=== PATIENT | male | born 1945 | race Caucasian/White ===

== ENCOUNTER 2022-10-13 09:07 | Inpatient (IN) | payer MEDICARE, MEDICAID ==
[~2022-10-13] VITALS: Ht 175.3 cm; Wt 65.8 kg
[2022-10-13] VITALS (39 sets, daily range): BP systolic 77–121; BP diastolic 47–110
--- NOTE | 2022-10-13 09:10 | NUR ---
RECEIVED PT 80YRS MALE CAME BY DONTE FOR FROM SNF FOR LOW BP PT OPEN HIS EYED EYE CONTACT TO [facility]
--- NOTE | 2022-10-13 09:15 | NUR ---
PICC LINE ON RT UPPER ARM
[2022-10-13] MEDS ORDERED: IV NS 0.9% 1,000 ML BAG IV ONE (09:30)
--- NOTE | 2022-10-13 09:46 | NUR ---
BLOOD DROW BY LAB TACH AND BLOOD CULTURE DONE X2
[2022-10-13 10:00] LABS: BASOPHILS % (AUTO) 0.1 % (0.0-2.0); HEMATOCRIT 49 % (39-51); LYMPHOCYTES % (AUTO) 7.8 % (20.0-44.0); MEAN CORPUSCULAR HGB CONC 33 g/dl (31.0-36.0); MEAN CORPUSCULAR VOLUME 98 fL (80-96); MONOCYTES # (AUTO) 0.9 K/uL (0.1-1.30); NEUTROPHILS # (AUTO) 11.4 K/uL (1.8-8.9); NEUTROPHILS % (AUTO) 85.1 % (43.0-81.0); PLATELET COUNT (AUTO) 234 K/uL (150-450); WHITE BLOOD COUNT (AUTO) 13.4 K/uL (4.3-11.0)
[2022-10-13] MEDS ORDERED: FENTANYL PF 100MCG/2ML AMPUL ONE (10:26)
[2022-10-13] MEDS ORDERED: PIPERACILLIN /TAZOBACTAM 3.375 G in IV D5W 50 ML IV ONE (10:30)
[2022-10-13] MEDS ORDERED: VANCOMYCIN 1 GM in IV D5W 250 ML IV ONE (10:30)
[2022-10-13] MEDS ORDERED: FENTANYL PF 100MCG/2ML AMPUL IV ONE (10:30)
--- NOTE | 2022-10-13 10:32 | NUR ---
DR. AGUIRRE AT BEDSIDE. SYNCHRONIZED CARDIOVERSION. 200J.
[2022-10-13 10:40] LABS: SERUM AMMONIA 15 umol/L (11-32)
--- NOTE | 2022-10-13 10:42 | NUR ---
CALLED NURSING SUP REGARDING PT BED
[2022-10-13 10:44] LABS: ALANINE AMINOTRANSFERASE 87 U/L (12-78); ALBUMIN 2.7 g/dL (3.4-5.0); ALKALINE PHOSPHATASE 392 U/L (46-116); ASPARTATE AMINOTRANSFERASE 37 U/L (15-37); BILIRUBIN,DIRECT 3.1 mg/dL (0.0-0.2); CALCIUM, SERUM 9.7 mg/dL (8.5-10.1); CARBON DIOXIDE 21 mmol/L (21-32); CHLORIDE 114 mmol/L (98-107); CREATININE 4.2 mg/dL (0.6-1.3); GLUCOSE 109 mg/dL (74-106); SODIUM SERUM 147 mmol/L (136-145); TOTAL PROTEIN, SERUM 9.4 g/dL (6.4-8.2)
--- NOTE | 2022-10-13 10:48 | NUR ---
COVID SWAB SENT TO LAB
[2022-10-13 10:58] LABS: THYROID STIMULATING HORMONE 26.535 uIU/mL (0.358-3.74)
[2022-10-13 11:03] LABS: BILIRUBIN,TOTAL 4.2 mg/dL (0.2-1.0)
[2022-10-13 11:07] LABS: POTASSIUM 6.3 mmol/L (3.5-5.1)
[2022-10-13 11:08] LABS: UREA NITROGEN, BLOOD 86 mg/dL (7-18)
[2022-10-13 11:09] LABS: ACETAMINOPHEN 0 ug/ml (10-30); ALCOHOL, BLOOD < 3 mg/dL (0-0)
[2022-10-13] MEDS ORDERED: CALCIUM CHLORIDE 1,000 MG/10 ML DISP.SYRIN IV ONE (11:30)
[2022-10-13] MEDS ORDERED: SODIUM BICARBONATE SYR 50 MEQ/50 ML DISP.SYRIN IV ONE (11:30)
[2022-10-13] MEDS ORDERED: INSULIN REGULAR, HUMAN 100 UNIT/ML 10 ML VIAL IV ONE (11:30)
[2022-10-13] MEDS ORDERED: ALBUTEROL FS 2.5 MG/3 ML VIAL.NEB NEB ONE (11:30)
[2022-10-13] MEDS ORDERED: DEXTROSE 50%-WATER 50 ML DISP.SYRIN IV ONE (11:30)
[2022-10-13] MEDS ORDERED: INSULIN REGULAR, HUMAN 100 UNIT/ML 10 ML VIAL ONE (11:48)
[2022-10-13] MEDS ORDERED: SODIUM BICARBONATE SYR 50 MEQ/50 ML DISP.SYRIN ONE (11:48)
[2022-10-13] MEDS ORDERED: CALCIUM CHLORIDE 1,000 MG/10 ML DISP.SYRIN ONE (11:48)
[2022-10-13] MEDS ORDERED: DEXTROSE 50%-WATER 50 ML DISP.SYRIN ONE (11:48)
[2022-10-13] MEDS ORDERED: GABA-532 PO (12:26)
[2022-10-13] MEDS ORDERED: HYDR2TAB7 PO (12:26)
[2022-10-13] MEDS ORDERED: APIX2.5T PO (12:26)
[2022-10-13] MEDS ORDERED: BISA10SU11 RC (12:26)
[2022-10-13] MEDS ORDERED: AMIO200T5 PO (12:26)
[2022-10-13] MEDS ORDERED: ONDANSETRON HCL/PF 4 MG/2 ML VIAL ONE (12:26)
[2022-10-13] MEDS ORDERED: METO25TA20 PO (12:27)
[2022-10-13] MEDS ORDERED: PANT40TA49 PO (12:27)
[2022-10-13] MEDS ORDERED: TPN ADD IV (12:27)
[2022-10-13] MEDS ORDERED: ACET-868 PO (12:27)
[2022-10-13] MEDS ORDERED: LEVA0.6320 IH (12:27)
[2022-10-13] MEDS ORDERED: ONDA4TAB11 PO (12:27)
[2022-10-13] MEDS ORDERED: LEVO50TA8 PO (12:27)
[2022-10-13] MEDS ORDERED: NOREPINEPHRINE 8 MG in IV NS 0.9% 242 ML IV PRN ×2 (12:30→14:00)
[2022-10-13] MEDS ORDERED: ONDANSETRON HCL/PF - ER 4 MG/2 ML VIAL IV ONE (12:30)
[2022-10-13] MEDS ORDERED: ALBUTEROL FS 2.5 MG/3 ML VIAL.NEB ONE (12:35)
[2022-10-13] MEDS ORDERED: HYDROCODONE/APAP 5/325MG TABLET PO PRN (13:00)
[2022-10-13] MEDS ORDERED: HYDROCODONE/APAP 10/325MG TABLET PO PRN (13:00)
[2022-10-13] MEDS ORDERED: Z GUARD REMEDY 4 OZ OINT TP PRN (13:00)
--- NOTE | 2022-10-13 13:15 | NUR ---
ROOM 257
--- NOTE | 2022-10-13 13:38 | NUR ---
REPORT GIVEN TO VALENTINO ANDINO ICU ROOM 262 FOR LUCÍA.
--- NOTE | 2022-10-13 13:50 | NUR ---
RN NOTES RECEIVED PT FROM ICU, [place] , FOLLOWS COMMAND , ORIENTED x1-2, ON RA, O2 SAT WNL, ON TELE A.FIB HR IN 100'S, ON LEVO AT 0.05 MCG/KG/MIN, FOR BP SUPPORT, IV SITES CDI, DRAINAGE BAG APPLIED TO RIGHT UPPER ABD HOLE AREA , MODERATE AMOUNT OF YELLOWISH , CLOUDY DRAINAGE NOTED, SR UP x3, CALL LIGHT WITHIN EASY REACH, BED LOCKED AND IN LOWEST POSITION, CONTINUE TO MONITOR
[2022-10-13] MEDS ORDERED: TPN/PPN PER PHARMACY IV PRN (16:00)
[2022-10-13] MEDS ORDERED: DEXTROSE 50%-WATER 50 ML DISP.SYRIN IV PRN (16:00)
[2022-10-13] MEDS: NOREPINEPHRINE 8 MG in IV NS 0.9% 242 ML IV PRN (16:30)
[2022-10-13] MEDS: APIXABAN 2.5 MG TABLET PO SCH (16:31)
[2022-10-13] MEDS ORDERED: TPN #1 IV SCH ×4 (17:00)
[2022-10-13] MEDS: BLOOD SUGAR DIAGNOSTIC 1 EACH STRIP IN SCH ×2 (17:40→23:24)
[2022-10-13] MEDS: FOLIC ACID 1 MG TABLET PO SCH (17:40)
--- NOTE | 2022-10-13 18:00 | NUR ---
RN NOTES PICC LINE HAS TWO PORTS ,UNABLE TO FLUSH RED PORT , ORDER RECEIVED FOR NEW PICC LINE , PT ON LEVO AND TPN.
--- NOTE | 2022-10-13 18:16 | NUR ---
RN NOTES PT REMAINS ON LEVO AT .08 MCG/KG/MIN, ON TPN AT 40 , AWAITING FOR NEW PICC LINE , NO DISTESS NOTED, WILL ENDORSE TO ROLL FILLER NURSE FOR CONTINUITY OF ARE
[2022-10-13] MEDS: MEROPENEM 500 MG in IV NS 0.9% 50 ML IV SCH (19:40)
--- NOTE | 2022-10-13 19:40 | NUR ---
ALCOHOL LAW ENFORCEMENT AGENT OPENING NOTES RECEIVED PT IN BED, BOTH EYE CLOSED, EASILY AROUSABLE, ALERT/ORIENTED X1-2, ABLE TO COMMAND. ON ROOM AIR AND PT TOLERATED WELL. O2 SAT 97%. IV ACCESS ON MAURICIO PICC, UNABLE TO FLUSH RED PORT. WAITING FOR ANOTHER PICC. ANOTHER IV ACCESS ON RT HAND #22G INTACT AND PATENT. NO S/S OF INFILTRATIONS. LEVO RUNNING AT 0.08 MCG/KG/MIN. PT IS ON TPN AT 40CC/HR AND TOLERATED WELL. DRAINAGE BAG NOTED AT RIGHT UPPER ABD HOLE AREA , MODERATE AMOUNT OF YELLOWISH , CLOUDY DRAINAGE. FLYNN CATHETER IN PLACE. DRAINING BY GRAVITY, NOTED DARK/YELLOWISH URINE. ALL SAFETY MEASURES IN PLACE. SR UP x3, BED IN LOWEST POSITION AND LOCKED. PLACE CALL LIGHT WITHIN REACH, CONTINUE TO MONITOR
[2022-10-13 19:56] LABS: BILIRUBIN,URINE 1+ (NEGATIVE); COLOR,URINE YELLOW (YELLOW); LEUKOCYTE ESTERASE ,URINE NEGATIVE (NEGATIVE); NITRITE, URINE NEGATIVE (NEGATIVE); PH,URINE 5.5 (5.0-8.0); PROTEIN,URINE 1+ mg/dl (NEGATIVE); UGLUCOSE NEGATIVE (NEGATIVE)
[2022-10-13 20:28] LABS: BACTERIA,URINE Moderate /HPF (None Seen); SQUAMOUS EPITHELIAL CELL,UR Moderate /HPF (None Seen); WBC,URINE 0-2 /HPF (0-3)
[2022-10-13 20:29] LABS: COARSE GRANULAR CASTS,URINE Few /LPF (None Seen); URINE AMORPHOUS URATE Moderate /HPF (None Seen)
--- NOTE | 2022-10-13 21:39 | NUR ---
RN NOTES: UNABLE TO FIND THE FAMILY TO GET CONSENT FOR PICC. CALLED TWICE AND LEFT MESSAGE. NOTIFIED CLAUDY NINA. WILL SIGN EMERGENCY CONSENT FOR PICC.
--- NOTE | 2022-10-13 22:07 | NUR ---
RN NOTES: PICC LINE INSERTED BY PICC NURSE.
[2022-10-13] MEDS: INSULIN REGULAR, HUMAN 100 UNIT/ML 3 ML VIAL SQ PRN (23:26)
--- NOTE | 2022-10-13 23:41 | NUR ---
RN NOTES: PT'S BLOOD SUGAR 137. 2 UNITS OF REGULAR INSULIN GIVEN. NO S/S OF HYPER/HYPOGLYCEMIA. WILL CONTINUE TO MONITOR
[2022-10-14] VITALS (97 sets, daily range): BP systolic 74–121; BP diastolic 35–86
[2022-10-14 04:53] LABS: BASOPHILS % (AUTO) 0.2 % (0.0-2.0); EOSINOPHILS % (AUTO) 0.3 % (0.0-6.0); HEMATOCRIT 38 % (39-51); HEMOGLOBIN 12.3 g/dL (13.5-17.5); LYMPHOCYTES # (AUTO) 0.9 K/uL (0.8-4.8); LYMPHOCYTES % (AUTO) 9.4 % (20.0-44.0); MEAN CORPUSCULAR HGB CONC 32 g/dl (31.0-36.0); MEAN CORPUSCULAR VOLUME 99 fL (80-96); MONOCYTES # (AUTO) 0.7 K/uL (0.1-1.30); MONOCYTES % (AUTO) 7.9 % (2.0-12.0); NEUTROPHILS # (AUTO) 7.5 K/uL (1.8-8.9); NEUTROPHILS % (AUTO) 82.2 % (43.0-81.0); PLATELET COUNT (AUTO) 168 K/uL (150-450); RED BLOOD CELL COUNT(AUTO) 3.85 MIL/uL (4.5-6.0); WHITE BLOOD COUNT (AUTO) 9.1 K/uL (4.3-11.0)
[2022-10-14] MEDS: INSULIN REGULAR, HUMAN 100 UNIT/ML 3 ML VIAL SQ PRN (05:35)
[2022-10-14] MEDS: BLOOD SUGAR DIAGNOSTIC 1 EACH STRIP IN SCH ×3 (05:35→17:18)
[2022-10-14] MEDS: MEROPENEM 500 MG in IV NS 0.9% 50 ML IV SCH ×2 (05:36→18:25)
--- NOTE | 2022-10-14 05:37 | NUR ---
RN NOTES: PT'S BLOOD SUGAR 113. NO COVERAGE NEEDED. NO S/S OF HYPER/HYPOGLYCEMIA. WILL CONTINUE TO MONITOR
[2022-10-14 05:38] LABS: D-DIMER 1.72 mg/L(FEU (0.17-0.50)
[2022-10-14 06:00] LABS: CARBON DIOXIDE 20 mmol/L (21-32); CHLORIDE 117 mmol/L (98-107); GLUCOSE 124 mg/dL (74-106); POTASSIUM 4.4 mmol/L (3.5-5.1); SODIUM SERUM 150 mmol/L (136-145)
[2022-10-14 06:01] LABS: CREATININE 4.3 mg/dL (0.6-1.3); MAGNESIUM 2.1 mg/dL (1.8-2.4); PHOSPHORUS 2.5 mg/dL (2.5-4.9); UREA NITROGEN, BLOOD 86 mg/dL (7-18)
--- NOTE | 2022-10-14 06:33 | NUR ---
PLEAT TAPER CLOSING NOTES PT IN BED, SLEEPING, EASILY AROUSABLE, ALERT/ORIENTED X 2-3 AND VERBALLY RESPONSIVE. ABLE TO COMMAND. ON ROOM AIR AND PT TOLERATED WELL. O2 SAT 96%. NEW IV ACCESS ON MAURICIO PICC AND RT HAND #22G INTACT AND PATENT. NO S/S OF INFILTRATIONS. LEVO RUNNING AT 0.08 MCG/KG/MIN. PT IS ON TPN AT 40CC/HR AND TOLERATED WELL. DRAINAGE BAG NOTED AT RIGHT UPPER ABD HOLE AREA , NOTED 100C OF YELLOWISH/BILE COLOR DRAINAGE. FLYNN CATHETER IN PLACE. DRAINING BY GRAVITY, NOTED DARK/YELLOWISH URINE. ALL DUE MEDS GIVEN ORDERED. ALL SAFETY MEASURES IN PLACE. SR UP x3, BED IN LOWEST POSITION AND LOCKED. PLACE CALL LIGHT WITHIN REACH, WILL ENDORSE TO MORNING SHIFT NURSE.
[2022-10-14 07:00] LABS: CHOLESTEROL 48 mg/dL (<200); HDL CHOLESTEROL 13 mg/dL (40-60); LDL 25 mg/dL (0-99); TRIGLYCERIDES 124 mg/dL (30-150)
--- NOTE | 2022-10-14 07:10 | NUR ---
RN Note Patient's GCS E4V4M6, bilateral pupils 3mm PEARRL. Cardiac montior showed AF HR 100/min. MAP>65mmHg with levophed running at 0.08mcg/kg/min via right UA PICC. SpO2 >95% RA, RR ~25/min. TPN running at 40mL/hr via right PICC. Will continue care and monitoring.
[2022-10-14] MEDS ORDERED: LEVOTHYROXINE SODIUM 50 MCG TABLET PO SCH (07:30)
[2022-10-14] MEDS ORDERED: PANTOPRAZOLE 40 MG TABLET.DR PO SCH (07:30)
--- NOTE | 2022-10-14 08:35 | NUR ---
WOUND CARE CONSULT: PT HAS BEEN SLEEPING SOUNDLY. ADMISSION PHOTO INDICATES ABDMINAL OPENING WHICH HAS DRAINAGE OSTOMY POUCH IN PLACE. DISCUSSED SKIN PROTECTION WITH NURSING STAFF. IN AGREEMENT WITH PLAN OF CARE.
[2022-10-14] MEDS: FOLIC ACID 1 MG TABLET PO SCH (09:09)
[2022-10-14] MEDS: GABAPENTIN 100 MG CAPSULE PO SCH (09:09)
[2022-10-14] MEDS: APIXABAN 2.5 MG TABLET PO SCH ×2 (09:10→16:42)
--- NOTE | 2022-10-14 09:30 | NUR ---
RN note Adminsitered oral medication for patientm, no choking or coughing noted. However after 5 minutes of administration, patient vomited as he complained dysphagia. Will continue observation.
[2022-10-14] MEDS: PANTOPRAZOLE 40 MG/PACK PACK GT SCH (10:00)
[2022-10-14 10:07] LABS: *ANA ANTI-CENTROMERE B AB <0.2 AI (0.0-0.9); *ANA ANTI-DNA(DS) AB, QN 3 IU/mL (0-9); *ANA ANTI-JO-1 <0.2 AI (0.0-0.9); *ANA ANTICHROMATIN ANTIBODY <0.2 AI (0.0-0.9); *ANA RNP ANTIBODIES 2.4 AI (0.0-0.9); *ANA SJOGREN'S ANTI-SS-A <0.2 AI (0.0-0.9); *ANA SJOGREN'S ANTI-SS-B <0.2 AI (0.0-0.9); *ANAANTI-SCLERODERMA-70 AB <0.2 AI (0.0-0.9); *ANASMITH AB <0.2 AI (0.0-0.9)
[2022-10-14] MEDS: MIDODRINE HCL (5MG) 5 MG TABLET PO SCH ×3 (11:41→19:21)
--- NOTE | 2022-10-14 13:00 | NUR ---
RN note Decided to space out the midodrine as it was administered at 11:00. Informed MD Grace about the arrangement.
[2022-10-14 13:08] LABS: AFP, TUMOR MARKER 3.2 ng/mL (0.0-8.4); CARBOHYDRATE AG 19-9 <2 U/mL (0-35)
--- NOTE | 2022-10-14 16:03 | NUR ---
RN note Patient complained hiccups. Informed MD Grace, who prescribed IV metoclopramide 10mg Q8H prn, given one dose.
[2022-10-14] MEDS: METOCLOPRAMIDE HCL 10 MG/2 ML VIAL IV PRN (16:42)
[2022-10-14] MEDS: NOREPINEPHRINE 8 MG in IV NS 0.9% 242 ML IV PRN (16:53)
[2022-10-14] MEDS ORDERED: TPN #2 IV SCH ×4 (16:59)
--- NOTE | 2022-10-14 20:30 | NUR ---
ICU/RN: PT CONVERTED TO RAPID AFIB. 12 LEAD EKG ORDERED. DINORA LOCO ACNP MADE AWARE.
--- NOTE | 2022-10-14 21:10 | NUR ---
ICU/RN: DINORA LOCO ACNP AT BEDSIDE TO EVALUATE PT.
[2022-10-14] MEDS ORDERED: AMIODARONE 150 MG in IV D5W 100 ML IV ONE (21:30)
[2022-10-14] MEDS ORDERED: AMIODARONE 150 MG/3 ML VIAL IV ONE ×2 (21:30→21:38)
--- NOTE | 2022-10-14 21:30 | NUR ---
ICU/RN: NEW ORDERS FOR AMIODARONE GTT WITH BOLUS.
[2022-10-14] MEDS: AMIODARONE 450 MG in IV D5W 241 ML IV PRN (21:45)
--- NOTE | 2022-10-14 21:45 | NUR ---
ICU/RN: AMIO BOLUS COMPLETE AND GTT STARTED AT 1MG/MIN
[2022-10-15] VITALS (97 sets, daily range): BP systolic 73–131; BP diastolic 24–88
[2022-10-15] MEDS: BLOOD SUGAR DIAGNOSTIC 1 EACH STRIP IN SCH ×5 (00:41→23:40)
--- NOTE | 2022-10-15 03:46 | NUR ---
ICU/RN: AMIO GTT TITRATED TO 0.5MG/MIN PER PROTOCOL.
[2022-10-15 05:24] LABS: BASOPHILS % (AUTO) 0.1 % (0.0-2.0); EOSINOPHILS % (AUTO) 2.3 % (0.0-6.0); HEMATOCRIT 38 % (39-51); HEMOGLOBIN 12.4 g/dL (13.5-17.5); LYMPHOCYTES # (AUTO) 0.9 K/uL (0.8-4.8); LYMPHOCYTES % (AUTO) 13.7 % (20.0-44.0); MEAN CORPUSCULAR HGB CONC 33 g/dl (31.0-36.0); MEAN CORPUSCULAR VOLUME 98 fL (80-96); MONOCYTES # (AUTO) 0.6 K/uL (0.1-1.30); MONOCYTES % (AUTO) 9.5 % (2.0-12.0); NEUTROPHILS # (AUTO) 4.9 K/uL (1.8-8.9); NEUTROPHILS % (AUTO) 74.4 % (43.0-81.0); PLATELET COUNT (AUTO) 160 K/uL (150-450); RED BLOOD CELL COUNT(AUTO) 3.85 MIL/uL (4.5-6.0); WHITE BLOOD COUNT (AUTO) 6.6 K/uL (4.3-11.0)
[2022-10-15 05:40] LABS: CALCIUM, SERUM 8.7 mg/dL (8.5-10.1); CARBON DIOXIDE 21 mmol/L (21-32); CHLORIDE 117 mmol/L (98-107); CREATININE 3.7 mg/dL (0.6-1.3); GLUCOSE 131 mg/dL (74-106); MAGNESIUM 2.1 mg/dL (1.8-2.4); PHOSPHORUS 2.3 mg/dL (2.5-4.9); POTASSIUM 4.1 mmol/L (3.5-5.1); SODIUM SERUM 146 mmol/L (136-145)
[2022-10-15 05:41] LABS: D-DIMER 2.86 mg/L(FEU (0.17-0.50)
[2022-10-15 05:45] LABS: UREA NITROGEN, BLOOD 84 mg/dL (7-18)
[2022-10-15] MEDS: MEROPENEM 500 MG in IV NS 0.9% 50 ML IV SCH ×2 (05:46→18:31)
--- NOTE | 2022-10-15 07:30 | NUR ---
RN Note Patient's GCS E4V4M6, bilateral bilateral pupils 3mm PEARRL. Cardiac montior showed AF HR 110/min. MAP>65mmHg with levophed running at 0.1mcg/kg/min via right UA PICC. SpO2 >95% RA, RR ~25/min. TPN running at 40mL/hr via right PICC. Will continue care and monitoring.
[2022-10-15] MEDS: AMIODARONE 450 MG in IV D5W 241 ML IV PRN ×2 (07:54→22:16)
--- NOTE | 2022-10-15 08:06 | NUR ---
WOUND CARE CONSULT: PT PRESENTS WITH RT UPPER ABDOMEN DRAINING WOUND WITH GREENISH DRAINAGE IN OSTOMY POUCH, PRESENT ON ADMISSION. DEFER TO PMD FOR POSSIBLE GENERAL SURGERY CONSULT. CONCUR WITH POUCH USE FOR SKIN PROTECTION. DISCUSSED SKIN PROTECTION WITH NURSING STAFF. MD IN AGREEMENT WITH PLAN OF CARE.
[2022-10-15] MEDS: GABAPENTIN 100 MG CAPSULE PO SCH (08:47)
[2022-10-15] MEDS: PANTOPRAZOLE 40 MG/PACK PACK GT SCH (08:47)
[2022-10-15] MEDS: FOLIC ACID 1 MG TABLET PO SCH (08:47)
[2022-10-15] MEDS: MIDODRINE HCL (5MG) 5 MG TABLET PO SCH ×3 (08:47→18:29)
[2022-10-15] MEDS: APIXABAN 2.5 MG TABLET PO SCH ×2 (08:48→18:29)
[2022-10-15] MEDS ORDERED: VANCOMYCIN 500 MG in IV D5W 100ml IV SCH (11:00)
[2022-10-15] MEDS ORDERED: Sodium Phosphate 15 MMOL in IV NS 0.9% 245 ML IV SCH (14:00)
--- NOTE | 2022-10-15 14:13 | NUR ---
RN note MRSA swab of nostril came back positive, ordered bactroban ointment.
[2022-10-15] MEDS ORDERED: TPN #3 IV SCH ×4 (16:59)
--- NOTE | 2022-10-15 18:00 | NUR ---
RN note Informed pharmacist about the absence of TPN bag, pharmacist Scarlett said that they would send the bag up.
--- NOTE | 2022-10-15 19:15 | NUR ---
ICU/PEN RIDER RECIEVED REPORT FROM DAY. SEE FLOWSHEET FOR ASSESSMENT. AND IV SPREAD SHEET FOR IV'S AND TITRATION. PT WAS TURNED AND REPOSITIONED FOR COMFORT AND CARE.
--- NOTE | 2022-10-15 19:15 | NUR ---
RN note Informed DR. Griffin about AF and the amiodarone drip. Inquired about the continuation of the amiodarone drip. He said to continue the infusion at 0.5mcg/kg/min.
[2022-10-15] MEDS: MUPIROCIN OINT 2% 22 GM TUBE NS SCH (21:57)
[2022-10-15] MEDS: MORPHINE SULFATE INJ 2 MG/ML DISP.SYRIN IV PRN (22:23)
--- NOTE | 2022-10-15 22:25 | NUR ---
ICU/BIN CLEANER PT C/O OF PAIN TO THE RIGHT SIDE, NOTIFED CHARGE NURSE ABOUT THIS WHI THEN GAVE MORPHINE 2 MG IVP FOR PAIN RATED 8/10. WILL CONTINUE TO MONITOR THIS PT AND HIS PAIN.
[2022-10-16] VITALS (80 sets, daily range): BP systolic 80–127; BP diastolic 39–80
[2022-10-16] MEDS: ONDANSETRON HCL/PF 4 MG/2 ML VIAL IVP PRN ×2 (02:59→18:11)
--- NOTE | 2022-10-16 03:11 | NUR ---
ICU/AUDITOR TAX ZOFRAN PRN WAS GIVEN FOR PT WHO APPEARS TO HAVE SOME DRY HEAVING. CHARGE NURSE MADE AWARE AND GAVE PRN. WILL CONTINUE TO MONITOR THIS PT. NO ACUTE DISTRESS SEEN AT THIS TIME.
[2022-10-16 05:02] LABS: BASOPHILS % (AUTO) 0.1 % (0.0-2.0); EOSINOPHILS % (AUTO) 2.8 % (0.0-6.0); HEMATOCRIT 37 % (39-51); LYMPHOCYTES # (AUTO) 0.9 K/uL (0.8-4.8); LYMPHOCYTES % (AUTO) 17.3 % (20.0-44.0); MEAN CORPUSCULAR HGB CONC 33 g/dl (31.0-36.0); MEAN CORPUSCULAR VOLUME 98 fL (80-96); MONOCYTES # (AUTO) 0.6 K/uL (0.1-1.30); MONOCYTES % (AUTO) 10.7 % (2.0-12.0); NEUTROPHILS # (AUTO) 3.6 K/uL (1.8-8.9); NEUTROPHILS % (AUTO) 69.1 % (43.0-81.0); PLATELET COUNT (AUTO) 168 K/uL (150-450); RED BLOOD CELL COUNT(AUTO) 3.78 MIL/uL (4.5-6.0); WHITE BLOOD COUNT (AUTO) 5.2 K/uL (4.3-11.0)
[2022-10-16 05:28] LABS: CALCIUM, SERUM 8.4 mg/dL (8.5-10.1); CARBON DIOXIDE 19 mmol/L (21-32); CHLORIDE 116 mmol/L (98-107); GLUCOSE 112 mg/dL (74-106); MAGNESIUM 2.2 mg/dL (1.8-2.4); PHOSPHORUS 3.4 mg/dL (2.5-4.9); SODIUM SERUM 146 mmol/L (136-145)
[2022-10-16 05:30] LABS: D-DIMER 5.69 mg/L(FEU (0.17-0.50)
[2022-10-16 05:31] LABS: UREA NITROGEN, BLOOD 80 mg/dL (7-18)
[2022-10-16] MEDS: BLOOD SUGAR DIAGNOSTIC 1 EACH STRIP IN SCH ×3 (05:49→17:57)
[2022-10-16] MEDS: MEROPENEM 500 MG in IV NS 0.9% 50 ML IV SCH ×2 (05:52→18:11)
--- NOTE | 2022-10-16 07:36 | NUR ---
MANAGER CRITICAL CARE note Patient's GCS E3V4M6 as patient was asleep. ent surgeon showed AF with HR 108/min with amiodarone drip running at 0.5mg/min to control HR. BP 97/58mmHg with levophed running at 0.02mmHg via right UA PICC. SPO2 97% RA, RR 24/min. Right UA PICC site is dry and intact, with amiodarone, levophed and TPN(40mL/hr) running. Patient appears jaundice, which was present at admission. Irene is in-situ, draining dark yellow-orange urine due to his biliary and liver condition. Keep observation.
[2022-10-16] MEDS: MIDODRINE HCL (5MG) 5 MG TABLET PO SCH ×3 (09:01→17:56)
[2022-10-16] MEDS: PANTOPRAZOLE 40 MG/PACK PACK GT SCH (09:01)
[2022-10-16] MEDS: FOLIC ACID 1 MG TABLET PO SCH (09:01)
[2022-10-16] MEDS: MUPIROCIN OINT 2% 22 GM TUBE NS SCH ×2 (09:02→21:07)
[2022-10-16] MEDS: APIXABAN 2.5 MG TABLET PO SCH ×2 (09:02→17:57)
[2022-10-16] MEDS: GABAPENTIN 100 MG CAPSULE PO SCH (09:02)
[2022-10-16] MEDS ORDERED: VANCOMYCIN 1 GM in IV D5W 250ml IV SCH (11:00)
[2022-10-16] MEDS ORDERED: VANCOMYCIN 500 MG in IV D5W 100ml IV SCH (11:00)
[2022-10-16] MEDS: METOCLOPRAMIDE HCL 10 MG/2 ML VIAL IV PRN (11:54)
--- NOTE | 2022-10-16 12:27 | NUR ---
LAMP SHADES SUPERVISOR Note Reported the drainage pouch over the right abdomen of patient. Dr. Grace ordered an CT abdomen before making a consultation to surgeon.
[2022-10-16] MEDS ORDERED: TPN #4 IV SCH ×4 (12:59)
--- NOTE | 2022-10-16 13:50 | NUR ---
RN note Received a call from MD Dr. Grace that patient can be discharged after his contact with neurosurgeon Dr. Munoz.
[2022-10-16] MEDS: AMIODARONE 450 MG in IV D5W 241 ML IV PRN (14:37)
--- NOTE | 2022-10-16 15:51 | NUR ---
ENVIRONMENTAL ISSUES INSTRUCTOR note Discharge documents are prepared and handed to patient and his mother. Education is given upon the exercises and activities to avoid for the time being. Advised patient not to engage in weight-lifting / bearing exercise that will increase the intra-cranial pressure. He showed understanding. Also reminded patient to arrange for an outpatient neurosurgery consultation and provided the document on excuse from work. Vital signs and neurological status have been normal all along. Patient passed urine without difficulty. Bilateral AC IV cannulas are removed. Patient left ICU with mother's accompany. Addendum: 10/17/22 at 1834 by CHANDLER CHRISTIANSON RN Note was entered for the wrong patient.
--- NOTE | 2022-10-16 19:45 | NUR ---
ICU/SEISMOMETER OPERATOR DR WOODWARD CARDIOLOGY MADE A NOTE, "Continue amiodarone drip at this point as the only way to control his heart rate" MADE CHARGE NURSE AWARE
[2022-10-16] MEDS: MORPHINE SULFATE INJ 2 MG/ML DISP.SYRIN IV PRN (19:49)
--- NOTE | 2022-10-16 20:15 | NUR ---
ICU/TON CONTAINER SHIPPER MORPHINE 2MG GIVEN IVP BY SECURITY SYSTEMS INTEGRATOR NURSE FOR PAIN 05/11. PAIN TO THE STOMACH AREA. WILL MONITOR THIS PT.
[2022-10-17] VITALS (75 sets, daily range): BP systolic 72–126; BP diastolic 42–74
[2022-10-17] MEDS: BLOOD SUGAR DIAGNOSTIC 1 EACH STRIP IN SCH ×5 (00:17→23:13)
[2022-10-17] MEDS: ONDANSETRON HCL/PF 4 MG/2 ML VIAL IVP PRN (00:52)
--- NOTE | 2022-10-17 00:56 | NUR ---
ICU/TICKET CHOPPER ASSEMBLER ZOFRAN PRN WAS GIVEN FOR PT WHO APPEARS TO HAVE SOME DRY HEAVING. CHARGE NURSE MADE AWARE AND GAVE PRN. WILL CONTINUE TO MONITOR THIS PT. NO ACUTE DISTRESS SEEN AT THIS TIME.
[2022-10-17] MEDS: MORPHINE SULFATE INJ 2 MG/ML DISP.SYRIN IV PRN (02:01)
--- NOTE | 2022-10-17 02:04 | NUR ---
ICU/TAPING FOREMAN MORPHINE 2MG GIVEN IVP BY DYE CAN OPERATOR NURSE FOR PAIN 05/11. PAIN TO THE STOMACH AREA. WILL MONITOR THIS PT.
[2022-10-17] MEDS ORDERED: AMIODARONE 150 MG/3 ML VIAL IV ONE (05:02)
[2022-10-17 05:03] LABS: ALANINE AMINOTRANSFERASE 95 U/L (12-78); ALKALINE PHOSPHATASE 355 U/L (46-116); ASPARTATE AMINOTRANSFERASE 70 U/L (15-37); BILIRUBIN,DIRECT 4.8 mg/dL (0.0-0.2); BILIRUBIN,TOTAL 5.5 mg/dL (0.2-1.0); CARBON DIOXIDE 19 mmol/L (21-32); CHLORIDE 116 mmol/L (98-107); CREATININE 2.9 mg/dL (0.6-1.3); GLUCOSE 112 mg/dL (74-106); MAGNESIUM 1.9 mg/dL (1.8-2.4); PHOSPHORUS 2.5 mg/dL (2.5-4.9); POTASSIUM 3.7 mmol/L (3.5-5.1); SODIUM SERUM 144 mmol/L (136-145); TOTAL PROTEIN, SERUM 6.2 g/dL (6.4-8.2); UREA NITROGEN, BLOOD 78 mg/dL (7-18)
[2022-10-17] MEDS: AMIODARONE 450 MG in IV D5W 241 ML IV PRN ×2 (05:07→17:32)
[2022-10-17 05:23] LABS: ALBUMIN 1.4 g/dL (3.4-5.0)
[2022-10-17 05:26] LABS: BASOPHILS % (AUTO) 0.2 % (0.0-2.0); EOSINOPHILS % (AUTO) 6.1 % (0.0-6.0); HEMATOCRIT 35 % (39-51); HEMOGLOBIN 11.4 g/dL (13.5-17.5); LYMPHOCYTES # (AUTO) 1.1 K/uL (0.8-4.8); LYMPHOCYTES % (AUTO) 22.8 % (20.0-44.0); MEAN CORPUSCULAR HGB CONC 32 g/dl (31.0-36.0); MEAN CORPUSCULAR VOLUME 98 fL (80-96); MONOCYTES # (AUTO) 0.6 K/uL (0.1-1.30); MONOCYTES % (AUTO) 12.6 % (2.0-12.0); NEUTROPHILS # (AUTO) 2.8 K/uL (1.8-8.9); NEUTROPHILS % (AUTO) 58.3 % (43.0-81.0); PLATELET COUNT (AUTO) 160 K/uL (150-450); RED BLOOD CELL COUNT(AUTO) 3.59 MIL/uL (4.5-6.0); WHITE BLOOD COUNT (AUTO) 4.8 K/uL (4.3-11.0)
[2022-10-17] MEDS: MEROPENEM 500 MG in IV NS 0.9% 50 ML IV SCH (05:31)
[2022-10-17] MEDS ORDERED: TPN BAG #5 IV SCH ×2 (05:45)
[2022-10-17 06:07] LABS: D-DIMER 6.69 mg/L(FEU (0.17-0.50)
--- NOTE | 2022-10-17 06:28 | NUR ---
ICU/PLASTIC BLOCK BOILER RELINER FIBRINOGEN IS 786 THIS IS TRENDING DOWN IN THE RIGHT DIRECTION
--- NOTE | 2022-10-17 07:27 | NUR ---
RN NOTES RECEIVED PT ON BED, ALERT/ CONFUSED , ON 2L O2 N/C , O2 SAT WNL, ON TELE A.FIB HR IN LOW 100'S, PT IS ON AMIODARONE a 0.5 MG/MIN FLYNN DRAINING TO GRAVITY, BILIARY DRAINAGE BAG INTACT, IV SITE CDI, TPN AT 85CC /HR RUNNING , SR UP x3, CALL LIGHT WITHIN EASY REACH, BED LOCKED AND IN LOWEST POSITION, CONTINUE TO MONITOR .
[2022-10-17] MEDS: PANTOPRAZOLE 40 MG/PACK PACK GT SCH (08:08)
[2022-10-17] MEDS: MIDODRINE HCL (5MG) 5 MG TABLET PO SCH ×3 (08:08→16:49)
[2022-10-17] MEDS: FOLIC ACID 1 MG TABLET PO SCH (08:08)
[2022-10-17] MEDS: GABAPENTIN 100 MG CAPSULE PO SCH (08:08)
[2022-10-17] MEDS: MUPIROCIN OINT 2% 22 GM TUBE NS SCH ×2 (08:10→20:50)
[2022-10-17] MEDS: APIXABAN 2.5 MG TABLET PO SCH ×2 (08:10→16:49)
--- NOTE | 2022-10-17 12:00 | NUR ---
RN NOTES PT RESTING , CONFUSED , NO DISTRESS NOTED
--- NOTE | 2022-10-17 13:00 | NUR ---
RN NOTES ORDER FOR CT OF ABD SHOULD REMAINS ROUTINE ORDER FOR NOW PER DR DAVEY .
[2022-10-17] MEDS ORDERED: TPN #6 IV SCH ×4 (17:30)
--- NOTE | 2022-10-17 18:32 | NUR ---
RN NOTES NO SIGNFICANT CHANGES NOTED ON THIS SHIFT, PT ON TPN AT 60CC/HR , AMIO AT 0.5 MG/MIN RUNNING , WILL ENDORSE TO WOOD GRINDER NURSE FOR CONTINUITY OF CARE
--- NOTE | 2022-10-17 19:45 | NUR ---
ICU/FLOUR BLENDER RECIEVED REPORT FROM DAY. SEE FLOWSHEET FOR ASSESSMENT. AND IV SPREAD SHEET FOR IV'S AND TITRATION. PT WAS TURNED AND REPOSITIONED FOR COMFORT AND CARE.
[2022-10-18] VITALS (21 sets, daily range): BP systolic 90–109; BP diastolic 53–69
[2022-10-18 04:40] LABS: BASOPHILS % (AUTO) 0.1 % (0.0-2.0); EOSINOPHILS % (AUTO) 4.3 % (0.0-6.0); HEMATOCRIT 35 % (39-51); HEMOGLOBIN 11.1 g/dL (13.5-17.5); LYMPHOCYTES # (AUTO) 1.1 K/uL (0.8-4.8); LYMPHOCYTES % (AUTO) 20.5 % (20.0-44.0); MEAN CORPUSCULAR HGB CONC 32 g/dl (31.0-36.0); MEAN CORPUSCULAR VOLUME 99 fL (80-96); MONOCYTES # (AUTO) 0.6 K/uL (0.1-1.30); MONOCYTES % (AUTO) 10.7 % (2.0-12.0); NEUTROPHILS # (AUTO) 3.4 K/uL (1.8-8.9); NEUTROPHILS % (AUTO) 64.4 % (43.0-81.0); PLATELET COUNT (AUTO) 173 K/uL (150-450); RED BLOOD CELL COUNT(AUTO) 3.52 MIL/uL (4.5-6.0); WHITE BLOOD COUNT (AUTO) 5.3 K/uL (4.3-11.0)
[2022-10-18 04:49] LABS: CALCIUM, SERUM 7.9 mg/dL (8.5-10.1); CARBON DIOXIDE 18 mmol/L (21-32); CHLORIDE 113 mmol/L (98-107); CREATININE 2.6 mg/dL (0.6-1.3); GLUCOSE 118 mg/dL (74-106); MAGNESIUM 1.7 mg/dL (1.8-2.4); PHOSPHORUS 2.4 mg/dL (2.5-4.9); POTASSIUM 3.6 mmol/L (3.5-5.1); SODIUM SERUM 140 mmol/L (136-145); UREA NITROGEN, BLOOD 72 mg/dL (7-18)
[2022-10-18] MEDS ORDERED: TPN BAG #7 IV SCH ×2 (05:30)
[2022-10-18] MEDS ORDERED: TPN BAG #8 IV SCH ×2 (05:30)
[2022-10-18] MEDS: BLOOD SUGAR DIAGNOSTIC 1 EACH STRIP IN SCH ×3 (05:53→18:09)
[2022-10-18] MEDS ORDERED: IV NS 0.9% 250 ML IV PRN (06:30)
--- NOTE | 2022-10-18 07:05 | NUR ---
RN OPENING NOTES RECEIVED REPORT FROM [facility] ANIYAH CHÁVEZ. PATIENT ON 2 LITERS SUPPLEMENTAL OXYGEN VIA NASAL CANULA. PATIENT ALSEEP BUT EASILY AROUSABLE. A-FIB ON THE MONITOR ON AMIODARONE. PER DR WOODWARD 'WILNER INFUSION @ 0.5 MCG' IV ACCESS ON RIGHT UPPER ARM PICC LINE AND RIGHT HAND 22 GAUGE HEP LOCKED. RIGHT ABDOMINAL DRAIN NOTED, PENDING CT SCAN OF AREA AT THIS TIME. SAFETY MEASURES IMPLEMENTED. WILL CONTINUE PLAN OF CARE AND ANTICIPATE NEEDS.
[2022-10-18 07:40] LABS: PREALBUMIN 10.2 MG/DL (18.0-35.7)
[2022-10-18] MEDS: PANTOPRAZOLE 40 MG/PACK PACK GT SCH (08:06)
[2022-10-18] MEDS: Magnesium 1GM/D5W 100ML PREMIX 100 ML IV SCH ×2 (08:06→09:08)
[2022-10-18] MEDS: GABAPENTIN 100 MG CAPSULE PO SCH (08:07)
[2022-10-18] MEDS: APIXABAN 2.5 MG TABLET PO SCH ×2 (08:07→17:00)
[2022-10-18] MEDS: FOLIC ACID 1 MG TABLET PO SCH (08:07)
[2022-10-18] MEDS: MIDODRINE HCL (5MG) 5 MG TABLET PO SCH ×4 (08:08→17:00)
[2022-10-18] MEDS: MUPIROCIN OINT 2% 22 GM TUBE NS SCH ×2 (08:08→20:34)
[2022-10-18 08:41] LABS: ALBUMIN 1.3 g/dL (3.4-5.0)
[2022-10-18] MEDS: AMIODARONE 450 MG in IV D5W 241 ML IV PRN ×2 (09:10→22:33)
[2022-10-18] MEDS: MORPHINE SULFATE INJ 2 MG/ML DISP.SYRIN IV PRN ×3 (09:39→22:35)
[2022-10-18] MEDS ORDERED: Sodium Phosphate 15 MMOL in IV NS 0.9% 245 ML IV SCH (10:00)
[2022-10-18] MEDS ORDERED: POTASSIUM PHOSPHATE MM 7.5 MMOL in IV NS 0.9% 100 ML IV SCH (10:00)
--- NOTE | 2022-10-18 12:25 | NUR ---
PATIENT TRANSFERRED TO ROOM 105 IN [place]. CARE ENDORSED TO CHARGE NURSE SOON.
--- NOTE | 2022-10-18 12:50 | NUR ---
PAVER OPERATOR NOTES PATIENT RECEIVED FROM ICU A/O X 2-3.
--- NOTE | 2022-10-18 13:00 | NUR ---
SUPERINTENDENT LOGGING NOTE MIDODRINE HELD PER MD ORDER. PT NPO.
[2022-10-18] MEDS: INSULIN REGULAR, HUMAN 100 UNIT/ML 3 ML VIAL SQ PRN ×2 (14:00→18:09)
--- NOTE | 2022-10-18 15:53 | NUR ---
STRICT NPO PT TO REMAIN ON STRICT NPO STATUS UNTIL SWALLOW EVALUATION 10/19.
[2022-10-18] MEDS ORDERED: TPN IV SCH ×4 (17:30)
--- NOTE | 2022-10-18 19:07 | NUR ---
NEPHROLOGIST CLOSING NOTES PT IN BED RESTING. ON 4L NC. BREATHING EVEN AND UNLABORED WITH NO SOB OR SIGNS OF RESPIRATORY DISTRESS. A-FIB 98 WITH BUNDLE BRANCH BLOCK ON MONITOR. IV ACCESS ON RIGHT UPPER ARM PICC LINE WITH AMIODARONE INFUSING @ 16.667 ML/HR AND TPN @ 85 ML/HR. RIGHT HAND 22 GAUGE HEP LOCKED. RIGHT ABDOMINAL DRAIN NOTED. COMPLAINTS OF ABDOMINAL PAIN ADDRESSED. ALL SAFETY PRECAUTIONS IN PLACE. WILL ENDORSE TO ONCOMING SHIFT FOR LUCÍA.
--- NOTE | 2022-10-18 19:30 | NUR ---
[place] RN OPENING NOTES RECEIVED PT IN BED RESTING. ON 4L NC. BREATHING EVEN AND UNLABORED WITH NO SOB OR SIGNS OF RESPIRATORY DISTRESS. A-FIB 92 WITH BUNDLE BRANCH BLOCK ON MONITOR. IV ACCESS ON RIGHT UPPER ARM PICC LINE WITH AMIODARONE INFUSING @ 16.66 ML/HR AND TPN @ 85 ML/HR. RIGHT HAND 22 GAUGE HEP LOCKED. RIGHT ABDOMINAL DRAIN NOTED. PT NOTED WITH HICCUPS, MEDS GIVEN ORDERED, ALL SAFETY PRECAUTIONS IN PLACE. WILL CONTINUE TO MONITOR THROUGHOUT THE SHIFT.
[2022-10-18] MEDS: METOCLOPRAMIDE HCL 10 MG/2 ML VIAL IV PRN (20:34)
[2022-10-19] VITALS: BP 114/68
[2022-10-19] MEDS: BLOOD SUGAR DIAGNOSTIC 1 EACH STRIP IN SCH ×5 (00:25→23:58)
[2022-10-19] MEDS: INSULIN REGULAR, HUMAN 100 UNIT/ML 3 ML VIAL SQ PRN ×3 (01:17→23:59)
[2022-10-19 04:00] VITALS: BP 98/63
[2022-10-19] MEDS ORDERED: TPN BAG #9 IV SCH ×2 (05:00)
--- NOTE | 2022-10-19 06:42 | NUR ---
[place] RN CLOSING NOTES PT REMAINS IN BED RESTING. ON 4L NC. BREATHING EVEN AND UNLABORED WITH NO SOB OR SIGNS OF RESPIRATORY DISTRESS. ON TELEMONITOR READING SR. IV ACCESS ON RIGHT UPPER ARM PICC LINE WITH AMIODARONE INFUSING @ 0.5 MG/MIN AND TPN @ 85 ML/HR. RIGHT HAND 22 GAUGE HEP LOCKED. RIGHT ABDOMINAL DRAIN NOTED. PT REMAINS NPO, DUE MEDS GIVEN, KEPT DRY AND CLEAN, ALL SAFETY PRECAUTIONS IN PLACE. WILL ENDORSE TO AM SHIFT NURSE FOR CONTINUITY OF CARE.
[2022-10-19 06:57] LABS: BASOPHILS % (AUTO) 0.1 % (0.0-2.0); EOSINOPHILS % (AUTO) 1.3 % (0.0-6.0); HEMATOCRIT 35 % (39-51); HEMOGLOBIN 11.5 g/dL (13.5-17.5); LYMPHOCYTES # (AUTO) 1.1 K/uL (0.8-4.8); LYMPHOCYTES % (AUTO) 15.5 % (20.0-44.0); MEAN CORPUSCULAR HGB CONC 33 g/dl (31.0-36.0); MEAN CORPUSCULAR VOLUME 98 fL (80-96); MONOCYTES # (AUTO) 0.6 K/uL (0.1-1.30); MONOCYTES % (AUTO) 8.3 % (2.0-12.0); NEUTROPHILS # (AUTO) 5.4 K/uL (1.8-8.9); NEUTROPHILS % (AUTO) 74.8 % (43.0-81.0); PLATELET COUNT (AUTO) 201 K/uL (150-450); WHITE BLOOD COUNT (AUTO) 7.3 K/uL (4.3-11.0)
[2022-10-19 07:12] LABS: CALCIUM, SERUM 7.8 mg/dL (8.5-10.1); CARBON DIOXIDE 16 mmol/L (21-32); CHLORIDE 108 mmol/L (98-107); CREATININE 2.5 mg/dL (0.6-1.3); GLUCOSE 126 mg/dL (74-106); PHOSPHORUS 2.2 mg/dL (2.5-4.9); POTASSIUM 3.3 mmol/L (3.5-5.1); SODIUM SERUM 134 mmol/L (136-145); UREA NITROGEN, BLOOD 68 mg/dL (7-18)
[2022-10-19 07:14] LABS: CHOLESTEROL 49 mg/dL (<200); LDL 35 mg/dL (0-99); TRIGLYCERIDES 172 mg/dL (30-150)
[2022-10-19 07:20] LABS: HDL CHOLESTEROL < 10 mg/dL (40-60)
--- NOTE | 2022-10-19 07:30 | NUR ---
[place] RN AM NOTES RECEIVED PT IN BED ASLEEP. AO X 2, ON 4L NC. O2 SAT 100%. BREATHING EVEN AND UNLABORED WITH NO SOB OR SIGNS OF RESPIRATORY DISTRESS. A-FIB 999 WITH BUNDLE BRANCH BLOCK ON MONITOR. NO SIGNS OF PAIN, IV ACCESS ON RIGHT UPPER ARM PICC LINE WITH AMIODARONE INFUSING @ 16.66 ML/HR AND TPN @ 85 ML/HR. RIGHT HAND 22 GAUGE FLUSHES WELL, ALL SITES CLEAR, RT UPPER ABDOMEN DRAINING WOUND WITH OSTOMY POUCH, NO DRAINAGE. FLYNN CATH IN PLACE, ADEQUATE URINE OUTPUT, TEA COLORED. PT NOTED WITH HICCUPS, NPO FOR NOW. FOR SWALLOW EVAL. HOB UP 30 DEG AT ALL TIMES. ALL SAFETY PRECAUTIONS IN PLACE. CALL LIGHT WITHIN REACH.WILL CONTINUE TO MONITOR.
[2022-10-19 07:37] LABS: ALBUMIN 1.3 g/dL (3.4-5.0); BILIRUBIN,DIRECT 5.9 mg/dL (0.0-0.2); BILIRUBIN,TOTAL 6.9 mg/dL (0.2-1.0); TOTAL PROTEIN, SERUM 6.2 g/dL (6.4-8.2)
[2022-10-19 08:00] VITALS: BP 107/62
--- NOTE | 2022-10-19 09:30 | NUR ---
RN OTES DUE MEDS GIVEN
[2022-10-19] MEDS: PANTOPRAZOLE 40 MG/PACK PACK GT SCH (10:07)
[2022-10-19] MEDS: MIDODRINE HCL (5MG) 5 MG TABLET PO SCH ×3 (10:07→17:29)
[2022-10-19] MEDS: FOLIC ACID 1 MG TABLET PO SCH (10:08)
[2022-10-19] MEDS: APIXABAN 2.5 MG TABLET PO SCH ×2 (10:08→17:29)
[2022-10-19] MEDS: GABAPENTIN 100 MG CAPSULE PO SCH (10:08)
[2022-10-19] MEDS: MUPIROCIN OINT 2% 22 GM TUBE NS SCH ×2 (10:09→20:38)
[2022-10-19] MEDS: AMIODARONE 450 MG in IV D5W 241 ML IV PRN (10:46)
[2022-10-19] MEDS ORDERED: POTASSIUM CL. PREMIX PERIPHER. 50 ML IV SCH (11:00)
--- NOTE | 2022-10-19 11:05 | NUR ---
RN NOTES SWALLOW EVAL DONE. PER LOWELL FAUST SPEECH THERAPIST, PATIENT ABLE TO SWALLOW BUT ONLY EATS LITTLE AND SOMETIMES REFUSES FOOD
[2022-10-19 12:00] VITALS: BP 108/60
[2022-10-19] MEDS: ENSURE ENLIVE 237 ML LIQUID (VANILLA) PO SCH ×2 (13:14→17:29)
--- NOTE | 2022-10-19 14:00 | NUR ---
RN NOTES AMIODARONE DRIP DC'D BY DR. DAVEY
[2022-10-19] MEDS: METOCLOPRAMIDE HCL 10 MG/2 ML VIAL IV PRN (15:42)
[2022-10-19 16:00] VITALS: BP 104/59
[2022-10-19] MEDS ORDERED: FAT EMULSION 20% 500 ML in PREMIX 1 EA IV SCH (16:00)
[2022-10-19] MEDS ORDERED: Sodium Phosphate 15 MMOL in IV NS 0.9% 245 ML IV SCH (16:00)
[2022-10-19] MEDS: MORPHINE SULFATE INJ 2 MG/ML DISP.SYRIN IV PRN ×2 (16:08→22:53)
[2022-10-19] MEDS ORDERED: TPN #10 IV SCH ×11 (16:30)
--- NOTE | 2022-10-19 19:30 | NUR ---
[place] RN CLOSING NOTES T IN BED ASLEEP. AO X 2, ON 4L NC. O2 SAT 98%. BREATHING EVEN AND UNLABORED WITH NO SOB OR SIGNS OF RESPIRATORY DISTRESS. A-FIB 89, ON MONITOR. NO SIGNS OF PAIN, IV ACCESS ON RIGHT UPPER ARM PICC LINE WITH TPN @ 85 ML/HR, LIPID AT 20 ML/HR, PHOSPHATE AT 63.33 ML/HR, ALL INFUSING WELL. RIGHT HAND 22 GAUGE FLUSHES WELL, ALL SITES CLEAR, RT UPPER ABDOMEN DRAINING WOUND WITH OSTOMY POUCH, WITH 40 ML OUTPUT. FLYNN CATH IN PLACE, ADEQUATE URINE 800 ML OUTPUT, TEA COLORED. PT NOTED WITH HICCUPS, ON PUREED DIET. ABLE TO SWALLOW BUT REFUSE EATING. HOB UP 30 DEG AT ALL TIMES. ALL SAFETY PRECAUTIONS IN PLACE. CALL LIGHT WITHIN REACH.ALL NEEDS MET. PM CARE DONE. TURNED AND REPOSITIONED Q 2 HOURS. ENDORSED TO NEXT SHIFT FOR LUCÍA FOR COVID 19 ANTIGEN TESTING.
[2022-10-19 20:00] VITALS: BP 106/60
[2022-10-19] MEDS: AMIODARONE HCL 200 MG TABLET PO SCH (20:37)
[2022-10-19] MEDS ORDERED: AMIODARONE HCL 200 MG TABLET PO SCH (21:00)
[2022-10-20] VITALS: BP 108/61
[2022-10-20 04:00] VITALS: BP 106/54
[2022-10-20] MEDS ORDERED: TPN #11 IV SCH (04:30)
[2022-10-20] MEDS: BLOOD SUGAR DIAGNOSTIC 1 EACH STRIP IN SCH ×2 (05:59→11:59)
[2022-10-20] MEDS: INSULIN REGULAR, HUMAN 100 UNIT/ML 3 ML VIAL SQ PRN (06:00)
--- NOTE | 2022-10-20 06:13 | NUR ---
END OF SHIFT, PATIENT IN BED, AWAKE A/O X2 ABLE TO VERBALIZE NEEDS AND CONCERNS, AT 4LPM VIA NC, NO SOB NOTED, WITH OPTIMAL O2 SAT LEVEL, VITAL SIGNS WNL, MORPHINE GIVEN ONCE FOR ABDOMINAL PAIN, CONTINUE ON TPN AND LIPIDS AT THIS TIME, INFUSING VIA MAURICIO PICC LINE, BILIARY DRAINAGE IN PLACE WITH 30ML, NO BM, F/C IN PLACED WITH ORANGE COLORED URINE, OTHERWISE NO SIGNIFICANT CHANGE IN CONDITION DURING THE NIGHT, HOB ELEVATED AT ALL TIMES, BED ALARM ON, BED LOCKED AND IN LOWEST POSITION, CALL LIGHT W/I REACH, WILL ENDORSE CONTINUITY OF CARE TO ONCOMING NURSE.
--- NOTE | 2022-10-20 07:30 | NUR ---
[place] RN AM NOTES RECEIVED PT IN BED ASLEEP. AO X 2, ON 4L NC. O2 SAT 100%. BREATHING EVEN AND UNLABORED WITH NO SOB OR SIGNS OF RESPIRATORY DISTRESS. A-FIB 93, NO SIGNS OF PAIN, IV ACCESS ON RIGHT UPPER ARM PICC LINE TPN @ 85 ML/HR,AND LIPID AT 20 ML/HR. RIGHT HAND 22 GAUGE FLUSHES WELL, ALL SITES CLEAR, RT UPPER ABDOMEN DRAINING WOUND WITH OSTOMY POUCH, DARK GREEN DARIAINAGE. FLYNN CATH IN PLACE, ADEQUATE URINE OUTPUT, DARK YELLOW, PT NOTED WITH HICCUPS, PUREED DIET. HOB UP 30 DEG AT ALL TIMES. ALL SAFETY PRECAUTIONS IN PLACE. CALL LIGHT WITHIN REACH.WILL CONTINUE TO MONITOR.
[2022-10-20 08:00] VITALS: BP 107/58
[2022-10-20] MEDS: ENSURE ENLIVE 237 ML LIQUID (VANILLA) PO SCH ×2 (08:18→11:59)
[2022-10-20] MEDS: MIDODRINE HCL (5MG) 5 MG TABLET PO SCH ×2 (08:20→13:18)
[2022-10-20] MEDS: AMIODARONE HCL 200 MG TABLET PO SCH (08:20)
[2022-10-20] MEDS: PANTOPRAZOLE 40 MG/PACK PACK GT SCH (08:20)
[2022-10-20] MEDS: FOLIC ACID 1 MG TABLET PO SCH (08:21)
[2022-10-20] MEDS: APIXABAN 2.5 MG TABLET PO SCH (08:21)
[2022-10-20] MEDS: GABAPENTIN 100 MG CAPSULE PO SCH (08:21)
[2022-10-20] MEDS: MORPHINE SULFATE INJ 2 MG/ML DISP.SYRIN IV PRN (08:25)
[2022-10-20 09:00] LABS: EOSINOPHILS % (AUTO) 1.5 % (0.0-6.0); HEMATOCRIT 37 % (39-51); LYMPHOCYTES # (AUTO) 0.8 K/uL (0.8-4.8); MEAN CORPUSCULAR HGB CONC 33 g/dl (31.0-36.0); MEAN CORPUSCULAR VOLUME 98 fL (80-96); MONOCYTES # (AUTO) 0.6 K/uL (0.1-1.30); MONOCYTES % (AUTO) 5.6 % (2.0-12.0); NEUTROPHILS # (AUTO) 8.9 K/uL (1.8-8.9); NEUTROPHILS % (AUTO) 84.9 % (43.0-81.0); PLATELET COUNT (AUTO) 233 K/uL (150-450); RED BLOOD CELL COUNT(AUTO) 3.76 MIL/uL (4.5-6.0); WHITE BLOOD COUNT (AUTO) 10.5 K/uL (4.3-11.0)
[2022-10-20 09:11] LABS: ALANINE AMINOTRANSFERASE 119 U/L (12-78); ALKALINE PHOSPHATASE 777 U/L (46-116); ASPARTATE AMINOTRANSFERASE 84 U/L (15-37); BILIRUBIN,TOTAL 6.6 mg/dL (0.2-1.0); CALCIUM, SERUM 7.7 mg/dL (8.5-10.1); CARBON DIOXIDE 16 mmol/L (21-32); CHLORIDE 108 mmol/L (98-107); CREATININE 2.4 mg/dL (0.6-1.3); GLUCOSE 111 mg/dL (74-106); MAGNESIUM 1.8 mg/dL (1.8-2.4); PHOSPHORUS 2.7 mg/dL (2.5-4.9); POTASSIUM 3.2 mmol/L (3.5-5.1); SODIUM SERUM 136 mmol/L (136-145); TOTAL PROTEIN, SERUM 6.5 g/dL (6.4-8.2); UREA NITROGEN, BLOOD 67 mg/dL (7-18)
[2022-10-20 09:13] LABS: ALBUMIN 1.3 g/dL (3.4-5.0)
--- NOTE | 2022-10-20 09:30 | NUR ---
RN NOTES DUE MEDS GIVEN
[2022-10-20] MEDS: MUPIROCIN OINT 2% 22 GM TUBE NS SCH (09:32)
[2022-10-20] MEDS ORDERED: POTASSIUM CL. PREMIX PERIPHER. 50 ML IV SCH ×2 (10:00→21:00)
--- NOTE | 2022-10-20 10:05 | NUR ---
RN NOTES DR. MENJIVAR NOTIFIED ALBUMIN IS 1.3 . NNO
[2022-10-20] MEDS ORDERED: Magnesium 1GM/D5W 100ML PREMIX 100 ML IV SCH (11:00)
[2022-10-20] MEDS ORDERED: MIDO5TAB4 PO (11:47)
[2022-10-20 12:00] VITALS: BP 103/69
[2022-10-20 13:18] VITALS: BP 103/69
--- NOTE | 2022-10-20 13:41 | NUR ---
RN NOTES REPORT GIVEN TO [facility] STAFF PATIENT WILL GO TO ROOM 26 B
--- NOTE | 2022-10-20 14:49 | NUR ---
CHILDCARE AIDECONSTRUCTION RIGGER NOTES PT DISCHARGE BACK TO [facility] PER MD IN STABLE CONDITION. PROVIED DC INSTRUCTIONS, HEALTH TEACHINGS AND MED RECON LIST. PATIENT TO FOLLOW UP WITH PCP IN 1 WEEKS OR PER FACILITY PROTOCOL. IV ACCESS ON RIGHT UPPER ARM PICC LINE, FLUSHES WELL SITE CLEAR, CDI DRESSING. RT HAND G 20 IV ACCESS REMOVED, PRESSURE AND DRESSING APPLIED, NO BLEEDING. RT UPPER ABDOMEN DRAINING WOUND WITH OSTOMY POUCH, WITH 80 ML OUTPUT. GREENISH BLACK DRAINAGE. PICTURE TAKEN. PLACED INSIDE CHART. FLYNN CATH IN PLACE, ADEQUATE URINE 800 ML OUTPUT, DARK YELLOW. NO BELONGING. ALL PAPER WORKS SIGNED. PICKED BY UP 2 AMBULANCE CREW AND WILL TRANSPORT TO FACILITY VIA AMBULANCE. REPORT GIVEN TO MS SIMMS AT FACILITY EARLIER. PM CARE DONE EARLIER.
[2022-10-20] MEDS ORDERED: TPN BAG #12 IV SCH ×4 (16:18)
[2022-10-21] MEDS ORDERED: TPN BAG #13 IV SCH ×2 (04:13)
== END 2022-10-20 15:06 | DRG 871 ==
LOC: ER 09:12 → ICU 13:30 → TELE-TD 10-18 12:19 → TELE1 10-20 08:55
PROVIDERS: ATTEND Internal Medicine
PROC: 02HV33Z Insertion of Infusion Device into Superior Vena Cava, Percutaneous Approach (ICD-10-PCS; principal; 2022-10-13)
PROC: B548ZZA Ultrasonography of Superior Vena Cava, Guidance (ICD-10-PCS; 2022-10-13)
DX: A41.9 Sepsis, unspecified organism (principal); G93.41 Metabolic encephalopathy; J96.21 Acute and chronic respiratory failure with hypoxia; R65.21 Severe sepsis with septic shock; J15.6 Pneumonia due to other Gram-negative bacteria; N18.6 End stage renal disease; R57.1 Hypovolemic shock; K83.1 Obstruction of bile duct; I13.2 Hypertensive heart and chronic kidney disease with heart failure and with stage 5 chronic kidney disease, or end stage renal disease; E87.20 Acidosis, unspecified; C22.9 Malignant neoplasm of liver, not specified as primary or secondary; N17.9 Acute kidney failure, unspecified; E87.0 Hyperosmolality and hypernatremia; E87.1 Hypo-osmolality and hyponatremia; I42.9 Cardiomyopathy, unspecified; Z20.822 Contact with and (suspected) exposure to COVID-19; Z92.89 Personal history of other medical treatment; Z86.73 Personal history of transient ischemic attack (TIA), and cerebral infarction without residual deficits; I50.9 Heart failure, unspecified; E87.5 Hyperkalemia; K74.60 Unspecified cirrhosis of liver; Z85.05 Personal history of malignant neoplasm of liver; Z85.09 Personal history of malignant neoplasm of other digestive organs; Z95.2 Presence of prosthetic heart valve; E78.5 Hyperlipidemia, unspecified; E80.6 Other disorders of bilirubin metabolism; R74.01 Elevation of levels of liver transaminase levels; I25.10 Atherosclerotic heart disease of native coronary artery without angina pectoris; E03.9 Hypothyroidism, unspecified; E86.1 Hypovolemia; F03.90 Unspecified dementia, unspecified severity, without behavioral disturbance, psychotic disturbance, mood disturbance, and anxiety; K72.10 Chronic hepatic failure without coma; E87.6 Hypokalemia; I48.91 Unspecified atrial fibrillation
CPT/HCPCS: 36415; 70450-TC; 71045-TC; 76770-TC; 80048-TC; 80053-TC; 80061-TC; 80076-TC; 80202-TC; 81001; 82040-TC; 82105; 82140-TC; 82378; 82962-TC; 83605-TC; 83735-TC; 84100-TC; 84134-TC; 84443-TC; 84484-TC; 85025-TC; 85385-TC; 85396; 85730-TC; 86140-TC; 86225; 86235; 86301; 86431-TC; 86706; 86803; 87040-TC; 87081-TC; 87086-TC; 87340; 92526; 92611-TC; 93307-TC; 94799-TC; A4216; A4223; A9563; C9803; G0378; G0480; J0282; J1815; J2185; J2270; J2405; J2543; J2765; J3010; J3370; J3475; J3480; J3490; J7030; J7050; J7060

== ENCOUNTER 2022-10-21 05:16 | Inpatient (IN) | payer MEDICARE, MEDICAID ==
[2022-10-21] VITALS (53 sets, daily range): BP systolic 80–144; BP diastolic 44–73
[~2022-10-21] VITALS: Ht 167.6 cm; Wt 67.6 kg
[~2022-10-21 05:16] MED LIST: ACET-868 PO; AMIO200T5 PO; APIX2.5T PO; BISA10SU11 RC; GABA-532 PO; HYDR2TAB7 PO; LEVA0.6320 IH; LEVO50TA8 PO; MIDO5TAB4 PO; ONDA4TAB11 PO; PANT40TA49 PO; TPN ADD IV
--- NOTE | 2022-10-21 05:40 | NUR ---
Pt is noted responsive as he is brought in from [facility]/R for N/Vomiting [id number] of oneal Osei at his facility and his S/P discharged from her [facility]. Pt is noted with Right Upper PICC Line, Irene Cath and Colostomy bag. Pt care continue as awaits MD orders.
[2022-10-21] MEDS ORDERED: ONDANSETRON HCL/PF 4 MG/2 ML VIAL ONE (05:43)
[2022-10-21] MEDS ORDERED: DEXTROSE 50%-WATER 50 ML DISP.SYRIN ONE (05:57)
[2022-10-21] MEDS ORDERED: ONDANSETRON HCL/PF 4 MG/2 ML VIAL IVP ONE (06:00)
[2022-10-21] MEDS ORDERED: IV NS 0.9% 1,000 ML BAG IV ONE (06:00)
[2022-10-21] MEDS ORDERED: DEXTROSE 50%-WATER 50 ML DISP.SYRIN IVP ONE (06:00)
[2022-10-21 06:12] LABS: BASOPHILS % (AUTO) 0.3 % (0.0-2.0); EOSINOPHILS % (AUTO) 0.6 % (0.0-6.0); HEMATOCRIT 38 % (39-51); HEMOGLOBIN 12.4 g/dL (13.5-17.5); LYMPHOCYTES # (AUTO) 0.9 K/uL (0.8-4.8); LYMPHOCYTES % (AUTO) 6.9 % (20.0-44.0); MEAN CORPUSCULAR HGB CONC 33 g/dl (31.0-36.0); MEAN CORPUSCULAR VOLUME 96 fL (80-96); MONOCYTES # (AUTO) 0.4 K/uL (0.1-1.30); MONOCYTES % (AUTO) 3.1 % (2.0-12.0); NEUTROPHILS # (AUTO) 11.9 K/uL (1.8-8.9); NEUTROPHILS % (AUTO) 89.1 % (43.0-81.0); PLATELET COUNT (AUTO) 311 K/uL (150-450); RED BLOOD CELL COUNT(AUTO) 3.95 MIL/uL (4.5-6.0); WHITE BLOOD COUNT (AUTO) 13.4 K/uL (4.3-11.0)
[2022-10-21 06:30] LABS: ALANINE AMINOTRANSFERASE 121 U/L (12-78); ALKALINE PHOSPHATASE 653 U/L (46-116); ASPARTATE AMINOTRANSFERASE 87 U/L (15-37); BILIRUBIN,DIRECT 4.9 mg/dL (0.0-0.2); BILIRUBIN,TOTAL 5.9 mg/dL (0.2-1.0); CALCIUM, SERUM 8.3 mg/dL (8.5-10.1); CARBON DIOXIDE 14 mmol/L (21-32); CHLORIDE 107 mmol/L (98-107); CREATININE 2.5 mg/dL (0.6-1.3); GLUCOSE 93 mg/dL (74-106); LIPASE 79 U/L (73-393); POTASSIUM 3.5 mmol/L (3.5-5.1); SODIUM SERUM 135 mmol/L (136-145); UREA NITROGEN, BLOOD 66 mg/dL (7-18)
[2022-10-21 06:36] LABS: ALBUMIN 1.4 g/dL (3.4-5.0)
[2022-10-21] MEDS ORDERED: AMIODARONE 150 MG/3 ML VIAL IV ONE ×2 (07:21→07:30)
--- NOTE | 2022-10-21 07:27 | NUR ---
Pt care continue as Amiodarone 150mg IV Bolus given as PT in A.FIB with RVR at a rate off 130s. Pt care continue as report is given to the AM receving RN.
[2022-10-21] MEDS: CEFEPIME 1 GM in IV D5W 50 ML IV SCH ×2 (08:10→09:57)
--- NOTE | 2022-10-21 08:10 | NUR ---
MESSAGE LEFT FOR SHEKHAR ELMORE TO CALL BACK
--- NOTE | 2022-10-21 08:17 | NUR ---
message left for Ady Crespo to call back
--- NOTE | 2022-10-21 08:24 | NUR ---
DR. URIBE SPEAKING WITH DR. GHOSH.
[2022-10-21] MEDS ORDERED: VANCOMYCIN 1 GM in IV D5W 250 ML IV ONE (08:30)
[2022-10-21] MEDS ORDERED: CEFEPIME 1 GM in IV D5W 50 ML IV ONE (08:30)
[2022-10-21] MEDS ORDERED: IV NS 0.9% 1,000 ML IV ONE ×3 (08:30)
--- NOTE | 2022-10-21 08:38 | NUR ---
[facility] CALLED MANAGER NIGHT PAGED.
--- NOTE | 2022-10-21 08:42 | NUR ---
GOT BED 257 ADMITTING INFORMED.
--- NOTE | 2022-10-21 08:55 | NUR ---
levophed running at 0.1mcg/kg. 12.85 ml per hour. bp 88/51
[2022-10-21] MEDS ORDERED: Z GUARD REMEDY 4 OZ OINT TP PRN (09:00)
[2022-10-21] MEDS ORDERED: OCTREOTIDE 1,250 MCG in IV NS 0.9% 247.5 ML IV PRN (09:00)
[2022-10-21] MEDS ORDERED: MAGNESIUM HYDROXIDE 30 ML UDC PO PRN (09:00)
[2022-10-21] MEDS ORDERED: ZOLPIDEM TARTRATE 5 MG TABLET PO PRN (09:00)
[2022-10-21] MEDS ORDERED: PHENYLEPHRINE 100 MG in IV NS 0.9% 240 ML IV PRN (09:00)
[2022-10-21] MEDS ORDERED: ACETAMINOPHEN 325 MG TABLET PO PRN ×2 (09:00→10:00)
[2022-10-21] MEDS ORDERED: MAG HYDROX/AL HYDROX/SIMETH 30 ML UDC PO PRN (09:00)
[2022-10-21] MEDS ORDERED: NOREPINEPHRINE 8 MG in IV NS 0.9% 242 ML IV PRN (09:00)
--- NOTE | 2022-10-21 09:37 | NUR ---
SHEKHAR CAREGIVER [phone] CALLED STATES THAT PT "HAS NO FAMILY, ONLY ME".
--- NOTE | 2022-10-21 09:55 | NUR ---
ADMITTED PT. FROM ER DEPT C/O NAUSEA/VOMITING PER REPORT FROM RN-TWYLA; ON LEVO DRIP PER ORDER OF 0.1MCG/KG/MIN AND VANCO IVPB ;AND NS 1000MLs JUST COMPLETED NOW; F/C AND BILIARY DRAIN/PICC MAURICIO IN-PLACE, SAFETY MEASURES IN-PLACE, WILL CONTINUE TO MONITOR.
[2022-10-21] MEDS ORDERED: MIDODRINE HCL (5MG) 5 MG TABLET PO PRN ×2 (10:00→11:00)
[2022-10-21] MEDS ORDERED: BISACODYL SUPP (10 MG) 10 MG/SUPP.RECT SUPP.RECT RC PRN (10:00)
[2022-10-21] MEDS ORDERED: HYDROMORPHONE HCL 2 MG TABLET PO PRN (10:00)
--- NOTE | 2022-10-21 10:08 | NUR ---
Pt admitted to ICU 257 from ER. Cont Levophed Drip for BP support Pt AAox3 primary Yakut Speaking RUE PICC line and Biliary drainage bag present upon admission. Placed on continuous EKG monitoring 2L NC in place. No respiratory distress noted Follow up admitting orders. Cont current plan of care
--- NOTE | 2022-10-21 10:49 | NUR ---
SS NOTE: SW received call from the pt.'s caregiver, Paula Farris [phone] requesting SW provide pt. with advanced directive paperwork to pt. Per Paula the pt. does not have any family in the [place], all his family is in [facility] and he has been unable to communicate with them. SW met with pt. at bedside and the pt. is sleeping and weak, SW discussed with pt.'s nurse, that pt. currently does not have the capacity to completed advanced healthcare directive. VIKTORIYA called the pt.'s caregiver , Paula back and left voicemail explaining above stated information and informed her that when pt. is downgraded, SW can follow up with explaining advanced directive paperwork
[2022-10-21] MEDS: PANTOPRAZOLE 40 MG VIAL IV SCH ×2 (11:02→20:59)
[2022-10-21] MEDS: IV NS 0.9% 1,000 ML IV PRN ×2 (11:04→20:14)
[2022-10-21] MEDS: ONDANSETRON HCL/PF 4 MG/2 ML VIAL IVP PRN (11:41)
[2022-10-21] MEDS: NOREPINEPHRINE 8 MG in IV NS 0.9% 242 ML IV PRN (11:43)
[2022-10-21] MEDS ORDERED: VANCOMYCIN 1 GM in IV D5W 250ml IV ONE (14:00)
[2022-10-21 14:33] LABS: BASOPHILS % (AUTO) 0.3 % (0.0-2.0); EOSINOPHILS % (AUTO) 0.1 % (0.0-6.0); HEMATOCRIT 36 % (39-51); HEMOGLOBIN 11.8 g/dL (13.5-17.5); LYMPHOCYTES % (AUTO) 6.2 % (20.0-44.0); MEAN CORPUSCULAR HGB CONC 33 g/dl (31.0-36.0); MEAN CORPUSCULAR VOLUME 96 fL (80-96); MONOCYTES # (AUTO) 0.9 K/uL (0.1-1.30); MONOCYTES % (AUTO) 5.3 % (2.0-12.0); NEUTROPHILS # (AUTO) 14.8 K/uL (1.8-8.9); NEUTROPHILS % (AUTO) 88.1 % (43.0-81.0); PLATELET COUNT (AUTO) 319 K/uL (150-450); RED BLOOD CELL COUNT(AUTO) 3.77 MIL/uL (4.5-6.0); WHITE BLOOD COUNT (AUTO) 16.8 K/uL (4.3-11.0)
--- NOTE | 2022-10-21 19:50 | NUR ---
TOYS INSPECTOR. INITIAL ASSESSMENT.RECEIVED THE PT REST IN BED. AWAKE, ALERT. LETHARGIC, OXYGEN 2L VIA NASAL CANNULA. SAT 98%. NO ACUTE DISTRESS NOTED. SHEET METAL ENGINEER SHOWING AFIB. IV RT UPPER ARM PICC LINE IVF NS 100 ML/H,LEVO 0.1 MCG/KG/MIN, FC PATENT, COLOSTOMY INTACT. HOB ELEVATED, WILL CONTINUE TO MONITOR VITALS.
[2022-10-21] MEDS: HYDROMORPHONE INJ 2 MG/ML DISP.SYRIN IV PRN (21:00)
[2022-10-22] VITALS (83 sets, daily range): BP systolic 72–133; BP diastolic 28–86
[2022-10-22] MEDS: ONDANSETRON HCL/PF 4 MG/2 ML VIAL IVP PRN ×4 (01:52→23:08)
--- NOTE | 2022-10-22 03:08 | NUR ---
INTERNET TECHNOLOGY MANAGER. AM CARE GIVEN. REMAINING SAME OXYGEN TOLERATED WELL. SAT 98%. NO ACUTE DISTRESS NOTED. LEI SELLER SHOWING NSR. IV RT UPPER ARM PICC LINE. LEVOPHED 0.1MCG/KG/MIN,IVF NS 100ML/H. FC PATENT URINE DRAINING. TURN AND REPOSITION Q2H. WILL CONTINUE TO MONITOR VITALS.
[2022-10-22] MEDS: NOREPINEPHRINE 8 MG in IV NS 0.9% 242 ML IV PRN ×2 (03:11→21:50)
[2022-10-22] MEDS: IV NS 0.9% 1,000 ML IV PRN (03:51)
[2022-10-22 04:17] LABS: BASOPHILS % (AUTO) 0.2 % (0.0-2.0); EOSINOPHILS % (AUTO) 0.9 % (0.0-6.0); HEMATOCRIT 34 % (39-51); LYMPHOCYTES # (AUTO) 0.7 K/uL (0.8-4.8); LYMPHOCYTES % (AUTO) 5.6 % (20.0-44.0); MEAN CORPUSCULAR HGB CONC 33 g/dl (31.0-36.0); MEAN CORPUSCULAR VOLUME 97 fL (80-96); MONOCYTES # (AUTO) 0.6 K/uL (0.1-1.30); MONOCYTES % (AUTO) 4.7 % (2.0-12.0); NEUTROPHILS # (AUTO) 11.4 K/uL (1.8-8.9); NEUTROPHILS % (AUTO) 88.6 % (43.0-81.0); PLATELET COUNT (AUTO) 312 K/uL (150-450); RED BLOOD CELL COUNT(AUTO) 3.49 MIL/uL (4.5-6.0); WHITE BLOOD COUNT (AUTO) 12.9 K/uL (4.3-11.0)
[2022-10-22 04:30] LABS: ALANINE AMINOTRANSFERASE 108 U/L (12-78); ALKALINE PHOSPHATASE 466 U/L (46-116); ASPARTATE AMINOTRANSFERASE 81 U/L (15-37); BILIRUBIN,TOTAL 6.1 mg/dL (0.2-1.0); CALCIUM, SERUM 7.4 mg/dL (8.5-10.1); CARBON DIOXIDE 13 mmol/L (21-32); CHLORIDE 110 mmol/L (98-107); CREATININE 2.4 mg/dL (0.6-1.3); GLUCOSE 139 mg/dL (74-106); MAGNESIUM 1.9 mg/dL (1.8-2.4); PHOSPHORUS 3.9 mg/dL (2.5-4.9); POTASSIUM 3.2 mmol/L (3.5-5.1); SODIUM SERUM 136 mmol/L (136-145); UREA NITROGEN, BLOOD 54 mg/dL (7-18)
[2022-10-22 04:44] LABS: ALBUMIN 1.2 g/dL (3.4-5.0)
[2022-10-22] MEDS: LEVOTHYROXINE SODIUM 50 MCG TABLET PO SCH (07:30)
--- NOTE | 2022-10-22 08:00 | NUR ---
WOUND CARE CONSULT: PT PRESENTS WITH DISCOLORATION TO LOWER LEGS, RT LATERAL KNEE SCAR, SACRAL INTACT DEEP TISSUE INJURY WITH DIMPLING NOTED WELL RT UPPER ABDOMEN SURGICAL OPENING WITH OSTOMY POUCH FOR DRAINAGE COLLECTION, ALL PRESENT ON ADMISSION. PT NOTED TO HAVE JAUNDICED SKIN. DEFER TO PMD FOR POSSIBLE GENERAL SURGERY CONSULT FOR ABDOMINAL AREA. DISCUSSED SKIN PROTECTION RECOMMENDATIONS WITH NURSING STAFF. RINA LESTER NOTED. IN AGREEMENT WITH PLAN OF CARE. Addendum: 10/22/22 at 0805 by ROLAN LING WNDNU Amended: Links added.
[2022-10-22] MEDS ORDERED: AMIODARONE HCL 200 MG TABLET PO SCH (09:00)
[2022-10-22] MEDS: GABAPENTIN 100 MG CAPSULE PO SCH (09:00)
[2022-10-22] MEDS: PANTOPRAZOLE 40 MG VIAL IV SCH ×2 (09:14→20:44)
[2022-10-22] MEDS: CEFEPIME 1 GM in IV D5W 50 ML IV SCH (09:15)
[2022-10-22] MEDS: VANCOMYCIN 500 MG in IV D5W 100ml IV SCH (10:45)
[2022-10-22] MEDS ORDERED: DEXTROSE 50%-WATER 50 ML DISP.SYRIN IV PRN (12:00)
[2022-10-22] MEDS: BLOOD SUGAR DIAGNOSTIC 1 EACH STRIP IN SCH ×3 (12:29→23:31)
[2022-10-22] MEDS ORDERED: IV NS 0.9% 1,000 ML IV PRN (14:00)
[2022-10-22] MEDS ORDERED: TPN BAG #1 IV SCH ×3 (14:00)
[2022-10-22] MEDS: INSULIN REGULAR, HUMAN 100 UNIT/ML 3 ML VIAL SQ PRN (17:37)
--- NOTE | 2022-10-22 19:17 | NUR ---
HOUSE RN. INITIAL ASSESSMENT. RECEIVED THE PT REST IN BED. SLEEPING. HOB ELEVATED.IV RT UPPER ARM PICC LINE INTACT. TPN 75 ML/H, SANDOSTATIN 25 MCG//H, LEVOPHED 0.1MCG/KG/MIN,HOB ELEVATED. RT SIDE DRAIN POUCH INTACT. FC PATENT. URINE DRAINING. WILL CONTINUE TO MONITOR VITALS.
[2022-10-23] VITALS (81 sets, daily range): BP systolic 76–163; BP diastolic 47–90
[2022-10-23] MEDS: HYDROMORPHONE INJ 2 MG/ML DISP.SYRIN IV PRN ×3 (01:26→20:50)
[2022-10-23] MEDS ORDERED: TPN BAG #2 IV SCH ×2 (04:00)
--- NOTE | 2022-10-23 04:23 | NUR ---
HEATING AND COOLING TECHNICIAN. AM CARE GIVEN. REMAINING SAME OXYGEN TOLERATED WELL. SAT 98%. NO ACUTE DISTRESS NOTED. TEST DRILLER SHOWING A FIB. IV RT UPPER ARM PICC LINE. SANDOSTATIN 25MCG/H, TPN 75 ML/H, LEVOPHED 0.1MCG/KG/MIN,HOB ELEVATED. FC PATENT. URINE DRAINING. NPO. X2 VOMITED. ZOFRAN GIVEN PER ORDER. TURN AND REPOSITION Q2H. WILL CONTINUE TO MONITOR VITALS.
[2022-10-23 04:34] LABS: BASOPHILS % (AUTO) 0.2 % (0.0-2.0); EOSINOPHILS % (AUTO) 0.7 % (0.0-6.0); HEMATOCRIT 35 % (39-51); HEMOGLOBIN 11.4 g/dL (13.5-17.5); LYMPHOCYTES # (AUTO) 0.6 K/uL (0.8-4.8); LYMPHOCYTES % (AUTO) 4.8 % (20.0-44.0); MEAN CORPUSCULAR HGB CONC 32 g/dl (31.0-36.0); MEAN CORPUSCULAR VOLUME 96 fL (80-96); MONOCYTES # (AUTO) 0.4 K/uL (0.1-1.30); MONOCYTES % (AUTO) 3.4 % (2.0-12.0); NEUTROPHILS # (AUTO) 10.5 K/uL (1.8-8.9); NEUTROPHILS % (AUTO) 90.9 % (43.0-81.0); PLATELET COUNT (AUTO) 367 K/uL (150-450); RED BLOOD CELL COUNT(AUTO) 3.66 MIL/uL (4.5-6.0); WHITE BLOOD COUNT (AUTO) 11.5 K/uL (4.3-11.0)
[2022-10-23 05:08] LABS: CALCIUM, SERUM 7.6 mg/dL (8.5-10.1); CARBON DIOXIDE 16 mmol/L (21-32); CHLORIDE 114 mmol/L (98-107); CREATININE 2.6 mg/dL (0.6-1.3); GLUCOSE 147 mg/dL (74-106); MAGNESIUM 1.8 mg/dL (1.8-2.4); PHOSPHORUS 2.5 mg/dL (2.5-4.9); POTASSIUM 3.1 mmol/L (3.5-5.1); SODIUM SERUM 142 mmol/L (136-145); UREA NITROGEN, BLOOD 55 mg/dL (7-18)
[2022-10-23] MEDS: BLOOD SUGAR DIAGNOSTIC 1 EACH STRIP IN SCH ×3 (05:33→18:09)
--- NOTE | 2022-10-23 05:35 | NUR ---
PARKING CONTROL OFFICER. PT HAS A FIB RATE IS 140. NOTIFIED MD VIDAL NEW ORDER RECEIVED. START AMIO DRIP.
[2022-10-23] MEDS ORDERED: AMIODARONE 150 MG/3 ML VIAL IV ONE (05:39)
[2022-10-23] MEDS: AMIODARONE 450 MG in IV D5W 241 ML IV PRN ×2 (05:47→13:22)
[2022-10-23] MEDS: LEVOTHYROXINE SODIUM 50 MCG TABLET PO SCH (07:30)
--- NOTE | 2022-10-23 07:30 | NUR ---
OPENING NOTE: REPORT RECEIVED FROM INOCENCIA ANDINO. ORDERS AND LABS REVIEWED DURING REPORT. PT IS A-FIB RATE 95, IRREGULAR ON MONITOR. PER REPORT PT HAD SEVERAL BOUTS OF EMESIS OVERNIGHT. PT CURRENTLY INFUSING AMIODARONE GTT AT 1MG/MIN (STARTED AT 0547), LEVOPHED GTT 0.1MCG/KG/MIN, TPN AT 75ML/HR AND SANDOSTATIN 25MCG/HR PER MD ORDERS. PT IS ALERT, SERBIAN SPEAKING ONLY. PER REPORT FOLLOWS COMMANDS. FLYNN CATHETER IN PLACE DRAINING WITHOUT DIFFICULTY. PT CHECKED ON HOURLY AND PRN BY NURSING STAFF.
[2022-10-23] MEDS: PANTOPRAZOLE 40 MG VIAL IV SCH ×2 (08:23→20:36)
[2022-10-23] MEDS: ONDANSETRON HCL/PF 4 MG/2 ML VIAL IVP PRN ×3 (08:24→20:36)
[2022-10-23] MEDS: CEFEPIME 1 GM in IV D5W 50 ML IV SCH (08:35)
[2022-10-23] MEDS: GABAPENTIN 100 MG CAPSULE PO SCH (09:00)
[2022-10-23] MEDS: VANCOMYCIN 500 MG in IV D5W 100ml IV SCH (10:26)
[2022-10-23] MEDS: INSULIN REGULAR, HUMAN 100 UNIT/ML 3 ML VIAL SQ PRN (12:09)
[2022-10-23] MEDS: POTASSIUM CL. PREMIX PERIPHER. 50 ML IV SCH ×2 (12:16→13:27)
[2022-10-23] MEDS ORDERED: TPN BAG #3 IV SCH ×4 (17:00)
[2022-10-23] MEDS: NOREPINEPHRINE 8 MG in IV NS 0.9% 242 ML IV PRN (18:34)
--- NOTE | 2022-10-23 18:52 | NUR ---
END OF SHIFT NOTE: NO SIGNIFICANT EVENTS THIS SHIFT. PT HAD 1 EPISODE OF EMESIS. ZOFRAN GIVEN X2 THIS SHIFT FOR NAUSEA AND VOMITING. TPN INFUSING PER MD ORDERS. LEVOPHED GTT INFUSING PER MD ORDERS, CURRENTLY INFUSING AT 0.08 MCG/KG/MIN. PT CHECKED ON HOURLY AND PRN BY NURSING STAFF.
[2022-10-23] MEDS ORDERED: Magnesium 1GM/D5W 100ML PREMIX 100 ML IV SCH (20:00)
[2022-10-24] VITALS (100 sets, daily range): BP systolic 74–150; BP diastolic 44–100
[2022-10-24] MEDS: BLOOD SUGAR DIAGNOSTIC 1 EACH STRIP IN SCH ×5 (00:18→23:02)
[2022-10-24] MEDS: HYDROMORPHONE INJ 2 MG/ML DISP.SYRIN IV PRN ×6 (03:13→23:02)
[2022-10-24] MEDS: ONDANSETRON HCL/PF 4 MG/2 ML VIAL IVP PRN ×4 (03:13→23:01)
[2022-10-24] MEDS: AMIODARONE 450 MG in IV D5W 241 ML IV PRN ×2 (04:32→18:47)
[2022-10-24] MEDS ORDERED: TPN BAG #4 IV SCH ×2 (05:00)
[2022-10-24 05:20] LABS: CALCIUM, SERUM 7.4 mg/dL (8.5-10.1); CARBON DIOXIDE 17 mmol/L (21-32); CHLORIDE 109 mmol/L (98-107); CREATININE 2.8 mg/dL (0.6-1.3); GLUCOSE 158 mg/dL (74-106); MAGNESIUM 1.9 mg/dL (1.8-2.4); PHOSPHORUS 2.1 mg/dL (2.5-4.9); SODIUM SERUM 136 mmol/L (136-145); UREA NITROGEN, BLOOD 59 mg/dL (7-18)
--- NOTE | 2022-10-24 07:10 | NUR ---
HOLDER PILE DRIVING NOTE Received patient in bed, asleep and not in respiratory distress. GCS [id number], bilateral pupils 3mm PEARLLA. share dairy farmer showed AF HR 112/min, with amiodarone drip running at 0.5mg/min via right UA PICC. On levophed running at 0.08mcg/kg/min, MAP >65mmHg. SpO2 99% with 2L via NC. No hiccups or vomiting noted. Will continue monitoring and care.
[2022-10-24] MEDS: LEVOTHYROXINE SODIUM 50 MCG TABLET PO SCH (07:30)
[2022-10-24] MEDS: IV NS 0.9% 250 ML IV PRN (08:24)
[2022-10-24] MEDS: CEFEPIME 1 GM in IV D5W 50 ML IV SCH (08:30)
[2022-10-24] MEDS: PANTOPRAZOLE 40 MG VIAL IV SCH ×2 (08:30→21:59)
[2022-10-24] MEDS: GABAPENTIN 100 MG CAPSULE PO SCH (08:32)
[2022-10-24] MEDS: VANCOMYCIN 500 MG in IV D5W 100ml IV SCH (10:21)
--- NOTE | 2022-10-24 10:33 | NUR ---
TOOL AND DIE ASSEMBLER NOTE Patient woke up and started to have hiccups and vomited. Administered ondansetron and hydromorphone for symptoms control. Will assess effectiveness.
--- NOTE | 2022-10-24 11:39 | NUR ---
WATER QUALITY TECHNICIAN NOTE Informed MD Dr. Lopes about hypokalemia and hypophosphatemia. He said that as patient was on TPN, would consult pharmacist for opinion. Informed pharmacist Alberto about the clinical conditions and they would made an order. To follow.
[2022-10-24] MEDS ORDERED: MGSO4/D5W 100 ML IV SCH (12:00)
--- NOTE | 2022-10-24 12:19 | NUR ---
CONSTRUCTION PERSON NOTE Patient desaturated to 88% with 2L oxygen despite suction, good waveform on oximetry, RR 17/min. Increased oxygen to 5L via NC. RT is made aware of the change.
[2022-10-24] MEDS ORDERED: POTASSIUM PHOSPHATE MM 7.5 MMOL in IV NS 0.9% 100 ML IV SCH (13:00)
[2022-10-24] MEDS ORDERED: ACETAMINOPHEN 650 MG/SUPP.RECT RC PRN (13:00)
[2022-10-24] MEDS: NOREPINEPHRINE 8 MG in IV NS 0.9% 242 ML IV PRN (15:03)
--- NOTE | 2022-10-24 16:15 | NUR ---
DORMITORY SUPERVISOR NOTE Patient's saturation improved, decreased oxygen from 5L to 2L via NC, RR 18/min.
[2022-10-24] MEDS ORDERED: TPN #5 IV SCH ×4 (17:00)
[2022-10-25] VITALS (91 sets, daily range): BP systolic 67–152; BP diastolic 44–98
[2022-10-25] MEDS: HYDROMORPHONE INJ 2 MG/ML DISP.SYRIN IV PRN ×4 (02:04→16:20)
[2022-10-25] MEDS: NOREPINEPHRINE 8 MG in IV NS 0.9% 242 ML IV PRN ×2 (03:12→19:31)
[2022-10-25] MEDS ORDERED: TPN #6 IV SCH (05:00)
[2022-10-25 05:28] LABS: BASOPHILS % (AUTO) 0.2 % (0.0-2.0); EOSINOPHILS % (AUTO) 0.2 % (0.0-6.0); HEMATOCRIT 32 % (39-51); HEMOGLOBIN 10.5 g/dL (13.5-17.5); LYMPHOCYTES # (AUTO) 0.9 K/uL (0.8-4.8); LYMPHOCYTES % (AUTO) 5.5 % (20.0-44.0); MEAN CORPUSCULAR HGB CONC 32 g/dl (31.0-36.0); MEAN CORPUSCULAR VOLUME 97 fL (80-96); MONOCYTES # (AUTO) 0.8 K/uL (0.1-1.30); NEUTROPHILS # (AUTO) 14.3 K/uL (1.8-8.9); NEUTROPHILS % (AUTO) 89.1 % (43.0-81.0); PLATELET COUNT (AUTO) 381 K/uL (150-450); RED BLOOD CELL COUNT(AUTO) 3.34 MIL/uL (4.5-6.0)
[2022-10-25 05:49] LABS: CALCIUM, SERUM 7.7 mg/dL (8.5-10.1); CARBON DIOXIDE 12 mmol/L (21-32); CHLORIDE 106 mmol/L (98-107); CREATININE 3.3 mg/dL (0.6-1.3); GLUCOSE 156 mg/dL (74-106); MAGNESIUM 2.2 mg/dL (1.8-2.4); PHOSPHORUS 2.4 mg/dL (2.5-4.9); POTASSIUM 3.3 mmol/L (3.5-5.1); SODIUM SERUM 131 mmol/L (136-145); UREA NITROGEN, BLOOD 73 mg/dL (7-18)
[2022-10-25] MEDS: BLOOD SUGAR DIAGNOSTIC 1 EACH STRIP IN SCH ×3 (06:32→18:09)
[2022-10-25] MEDS: ONDANSETRON HCL/PF 4 MG/2 ML VIAL IVP PRN ×3 (06:45→22:09)
--- NOTE | 2022-10-25 07:12 | NUR ---
DIVISION ORDER ANALYST NOTE Received patient in bed, resting and not in respiratory distress. GCS [id number], bilateral pupils 3mm PEARLLA. bolt header showed AF HR 107/min, with amiodarone drip running at 0.5mg/min via right UA PICC. BP at 0700 was 67/51mmHg with levophed running at 0.1mcg/kg/min, increased levophed to 0.2mcg/kg/min. SpO2 97% with 2L via NC, RR18/min. Noted hiccups with ondensetron just given. Will continue monitoring and care.
[2022-10-25] MEDS: LEVOTHYROXINE SODIUM 50 MCG TABLET PO SCH (07:30)
[2022-10-25] MEDS: IV NS 0.9% 250 ML IV PRN (08:07)
[2022-10-25] MEDS: GABAPENTIN 100 MG CAPSULE PO SCH (08:12)
[2022-10-25] MEDS: PANTOPRAZOLE 40 MG VIAL IV SCH ×2 (08:12→20:39)
[2022-10-25] MEDS: CEFEPIME 1 GM in IV D5W 50 ML IV SCH (08:12)
[2022-10-25] MEDS: VANCOMYCIN 500 MG in IV D5W 100ml IV SCH (09:49)
[2022-10-25] MEDS ORDERED: Magnesium 1GM/D5W 100ML PREMIX 100 ML IV SCH (10:00)
--- NOTE | 2022-10-25 10:05 | NUR ---
GLASS PROCESSING WORKER NOte K3.3 replaced by KPO4 and Mg 2.2 replaced by 1g MgSO4.
[2022-10-25] MEDS: HYDROCORTISONE SOD SUCCINATE 100 MG/2 ML VIAL IV SCH ×3 (10:45→20:39)
[2022-10-25 11:22] LABS: ALANINE AMINOTRANSFERASE 100 U/L (12-78); ALKALINE PHOSPHATASE 360 U/L (46-116); ASPARTATE AMINOTRANSFERASE 80 U/L (15-37); BILIRUBIN,TOTAL 7.6 mg/dL (0.2-1.0); CALCIUM, SERUM 7.4 mg/dL (8.5-10.1); CARBON DIOXIDE 12 mmol/L (21-32); CHLORIDE 105 mmol/L (98-107); CREATININE 3.5 mg/dL (0.6-1.3); GLUCOSE 149 mg/dL (74-106); POTASSIUM 3.3 mmol/L (3.5-5.1); SODIUM SERUM 131 mmol/L (136-145); TOTAL PROTEIN, SERUM 6.4 g/dL (6.4-8.2); UREA NITROGEN, BLOOD 72 mg/dL (7-18)
[2022-10-25 11:36] LABS: ALBUMIN 1.2 g/dL (3.4-5.0)
[2022-10-25 11:58] LABS: THYROID STIMULATING HORMONE 7.312 uIU/mL (0.358-3.74)
[2022-10-25] MEDS ORDERED: POTASSIUM PHOSPHATE MM 7.5 MMOL in IV NS 0.9% 100 ML IV SCH (12:00)
[2022-10-25] MEDS: DIGOXIN INJ 0.5 MG/2 ML AMPUL IV SCH ×2 (12:14→17:52)
[2022-10-25] MEDS: INSULIN REGULAR, HUMAN 100 UNIT/ML 3 ML VIAL SQ PRN ×2 (12:25→18:11)
--- NOTE | 2022-10-25 13:57 | NUR ---
PAID SEARCH MANAGER Note NOted two spikes of fever with TMax 101.9. Informed Dr. Lopes and he ordered a set of blood culture. Addendum: 10/25/22 at 1359 by CHANDLER CHRISTIANSON RN [place] Tylenol was given.
--- NOTE | 2022-10-25 14:30 | NUR ---
KERSEY DEPARTMENT SUPERVISOR NOTE Blood culture was taken and sent to lab.
[2022-10-25] MEDS ORDERED: TPN #7 IV SCH ×3 (17:00)
--- NOTE | 2022-10-25 19:38 | NUR ---
OYSTER CULLER. INITIAL ASSESSMENT. RECEIVED THE PT REST IN BED. AWAKE, ALERT. ABDOMEN DISTENDED. HOB ELEVATED. OXYGEN 2L VIA NASAL CANNULA. SAT 98%. NO ACUTE DISTRESS NOTED. ASSEMBLER RADIO AND ELECTRICAL SHOWING A FIB. PT IS NPO, FC PATENT. RT SIDE DRAIN INTACT. AFEBRILE. WILL CONTINUE TO MONITOR VITALS.
[2022-10-26] VITALS (76 sets, daily range): BP systolic 65–141; BP diastolic 33–80
[2022-10-26] MEDS ORDERED: DIGOXIN INJ 0.5 MG/2 ML AMPUL ONE (00:28)
[2022-10-26] MEDS: DIGOXIN INJ 0.5 MG/2 ML AMPUL IV SCH (00:40)
[2022-10-26] MEDS: BLOOD SUGAR DIAGNOSTIC 1 EACH STRIP IN SCH ×4 (00:40→17:51)
[2022-10-26] MEDS: HYDROMORPHONE INJ 2 MG/ML DISP.SYRIN IV PRN ×2 (01:28→23:02)
--- NOTE | 2022-10-26 03:43 | NUR ---
FIRE FIGHTER CRASH FIRE AND RESCUE. AM CARE GIVEN. REMAINING SAME OXYGEN TOLERATED WELL. SAT 97%. MANAGER SCHOOL SHOWING A FIBIV RT UPPER ARM PICC LINE. TPN 84 ML/H, LEVOPHED 0.1 MCG/KG/MIN. HOB ELEVATED, FC PATENT. URINE DRAINING. TURN AND REPOSITION Q2H. WILL CONTINUE TO MONITOR VITALS.
[2022-10-26] MEDS: HYDROCORTISONE SOD SUCCINATE 100 MG/2 ML VIAL IV SCH ×3 (04:54→20:29)
[2022-10-26] MEDS: ONDANSETRON HCL/PF 4 MG/2 ML VIAL IVP PRN (04:55)
[2022-10-26] MEDS ORDERED: TPN #8 IV SCH (05:00)
[2022-10-26 05:10] LABS: BASOPHILS # (AUTO) 0.1 K/uL (0.0-0.2); BASOPHILS % (AUTO) 0.8 % (0.0-2.0); EOSINOPHILS % (AUTO) 0.3 % (0.0-6.0); HEMATOCRIT 34 % (39-51); HEMOGLOBIN 11.1 g/dL (13.5-17.5); LYMPHOCYTES # (AUTO) 0.3 K/uL (0.8-4.8); LYMPHOCYTES % (AUTO) 1.9 % (20.0-44.0); MEAN CORPUSCULAR HGB CONC 32 g/dl (31.0-36.0); MEAN CORPUSCULAR VOLUME 97 fL (80-96); MONOCYTES # (AUTO) 0.5 K/uL (0.1-1.30); MONOCYTES % (AUTO) 2.7 % (2.0-12.0); NEUTROPHILS # (AUTO) 16.2 K/uL (1.8-8.9); NEUTROPHILS % (AUTO) 94.3 % (43.0-81.0); PLATELET COUNT (AUTO) 370 K/uL (150-450); RED BLOOD CELL COUNT(AUTO) 3.54 MIL/uL (4.5-6.0); WHITE BLOOD COUNT (AUTO) 17.2 K/uL (4.3-11.0)
[2022-10-26 05:30] LABS: CALCIUM, SERUM 7.7 mg/dL (8.5-10.1); CARBON DIOXIDE 13 mmol/L (21-32); CHLORIDE 107 mmol/L (98-107); CREATININE 3.9 mg/dL (0.6-1.3); GLUCOSE 152 mg/dL (74-106); PHOSPHORUS 2.4 mg/dL (2.5-4.9); POTASSIUM 3.2 mmol/L (3.5-5.1); SODIUM SERUM 131 mmol/L (136-145)
[2022-10-26 05:44] LABS: UREA NITROGEN, BLOOD 84 mg/dL (7-18)
--- NOTE | 2022-10-26 06:24 | NUR ---
agricultural equipment operator. pt at this time desaturated and tachypneic , stat abg done. oxygen non rebreather applied
[2022-10-26] MEDS ORDERED: SODIUM BICARBONATE SYR 50 MEQ/50 ML DISP.SYRIN IV ONE (07:00)
[2022-10-26] MEDS: LEVOTHYROXINE SODIUM 50 MCG TABLET PO SCH (07:30)
[2022-10-26] MEDS: Sodium Bicarbonate 100 MEQ in IV NS 0.9% 1,000 ML IV SCH ×2 (08:39→19:34)
[2022-10-26] MEDS: GABAPENTIN 100 MG CAPSULE PO SCH (08:41)
[2022-10-26] MEDS: CEFEPIME 1 GM in IV D5W 50 ML IV SCH (08:41)
[2022-10-26] MEDS: PANTOPRAZOLE 40 MG VIAL IV SCH ×2 (08:41→20:29)
--- NOTE | 2022-10-26 08:55 | NUR ---
LEFT MESSAGE FOR FAMILY TO CALL BACK WANTS TO UPDATE FAMILY AND DISCUSS "CODE STATUS" AWAITING CALL BACK AT THIS TIME
[2022-10-26] MEDS: VANCOMYCIN 500 MG in IV D5W 100ml IV SCH (09:16)
[2022-10-26] MEDS: FUROSEMIDE 20 MG/2 ML VIAL IV SCH ×2 (09:47→16:27)
[2022-10-26] MEDS ORDERED: Magnesium 1GM/D5W 100ML PREMIX 100 ML IV SCH ×2 (11:00)
[2022-10-26] MEDS ORDERED: POTASSIUM PHOSPHATE MM 7.5 MMOL in IV NS 0.9% 100 ML IV SCH (12:00)
[2022-10-26] MEDS: INSULIN REGULAR, HUMAN 100 UNIT/ML 3 ML VIAL SQ PRN (12:19)
[2022-10-26] MEDS ORDERED: TPN #9 IV SCH ×6 (17:00)
--- NOTE | 2022-10-26 18:30 | NUR ---
ICU 7A SHIFT: CONT TO PRESENT WITH RESPIRATORY DISTRESS. CONT 100% NRM, MD AWARE. PLAN FOR HD ONCE HD CATH IS PLACED TO TREAT METABOLIC ACIDOSIS PT CONT TO PRESENT WITH NAUSEA AND VOMITING/EMESIS; PRAL CARE AND ANTIEMETICS PROVIDED CONT TPN AND BICARB DRIP ORDERED TITRATED OFF LEVOPHED DRIP CONT WITH PLAN OF CARE.
--- NOTE | 2022-10-26 19:56 | NUR ---
NURSE CASE MANAGER. INITIAL ASSESSMENT. RECEIVED THE PT REST IN BED. PT AWAKE, CONFUSED. TACHYPNIC. NONREBREATHER ON. SAT 97. HOB ELEVATED. RT SIDE BILIARY INCISION INTACT. ABDOMEN DISTENDED, HOB ELEVATED. PT IS VERY UNSTABLE. FC PATENT. IV RT UPPER ARM PICC LINE BICARB DRIP 100ML/H,TPN 40 ML/H. WILL CONTINUE TO MONITOR VITALS..
[2022-10-27] VITALS (86 sets, daily range): BP systolic 68–140; BP diastolic 39–82
[2022-10-27] MEDS: BLOOD SUGAR DIAGNOSTIC 1 EACH STRIP IN SCH ×5 (00:17→23:52)
[2022-10-27] MEDS: NOREPINEPHRINE 8 MG in IV NS 0.9% 242 ML IV PRN ×2 (00:21→05:16)
--- NOTE | 2022-10-27 03:56 | NUR ---
CLINICAL ASSOC. AM CARE GIVEN. REMAINING SAME OXYGEN TOLERATED WELL. SAT 98%. NO ACUTE DISTRESS NOTED. HAND CUTTER SHOWING A FIB. FC PATENT URINE DRAINING. IV RT UPPER ARMPICC LINE IBF TPN 40 ML/H, HOB ELEVATED, TURN AND REPOSITION Q2H. WILL CONTINUE TO MONITOR VITALS. RT FEMORAL HD CATH INTACT
[2022-10-27] MEDS ORDERED: TPN #10 IV SCH ×4 (05:00→17:00)
[2022-10-27 05:14] LABS: BASOPHILS # (AUTO) 0.1 K/uL (0.0-0.2); BASOPHILS % (AUTO) 0.4 % (0.0-2.0); HEMATOCRIT 34 % (39-51); HEMOGLOBIN 11.1 g/dL (13.5-17.5); LYMPHOCYTES # (AUTO) 0.3 K/uL (0.8-4.8); LYMPHOCYTES % (AUTO) 1.6 % (20.0-44.0); MEAN CORPUSCULAR HGB CONC 33 g/dl (31.0-36.0); MEAN CORPUSCULAR VOLUME 96 fL (80-96); MONOCYTES # (AUTO) 0.5 K/uL (0.1-1.30); MONOCYTES % (AUTO) 2.9 % (2.0-12.0); NEUTROPHILS # (AUTO) 16.4 K/uL (1.8-8.9); NEUTROPHILS % (AUTO) 95.1 % (43.0-81.0); PLATELET COUNT (AUTO) 380 K/uL (150-450); RED BLOOD CELL COUNT(AUTO) 3.55 MIL/uL (4.5-6.0); WHITE BLOOD COUNT (AUTO) 17.2 K/uL (4.3-11.0)
[2022-10-27] MEDS: HYDROCORTISONE SOD SUCCINATE 100 MG/2 ML VIAL IV SCH ×3 (05:15→21:11)
[2022-10-27] MEDS: Sodium Bicarbonate 100 MEQ in IV NS 0.9% 1,000 ML IV SCH (05:15)
[2022-10-27 05:29] LABS: CALCIUM, SERUM 7.5 mg/dL (8.5-10.1); CARBON DIOXIDE 17 mmol/L (21-32); CHLORIDE 107 mmol/L (98-107); CREATININE 4.3 mg/dL (0.6-1.3); GLUCOSE 124 mg/dL (74-106); MAGNESIUM 2.2 mg/dL (1.8-2.4); PHOSPHORUS 3.6 mg/dL (2.5-4.9); POTASSIUM 3.1 mmol/L (3.5-5.1); SODIUM SERUM 137 mmol/L (136-145)
--- NOTE | 2022-10-27 05:33 | NUR ---
ADVANCED PRACTICE PROFESSIONAL. DIALYSIS STARTED AT 0530
[2022-10-27 05:37] LABS: UREA NITROGEN, BLOOD 104 mg/dL (7-18)
[2022-10-27] MEDS: LEVOTHYROXINE SODIUM 50 MCG TABLET PO SCH (07:13)
[2022-10-27] MEDS: FUROSEMIDE 20 MG/2 ML VIAL IV SCH ×3 (08:00→18:09)
--- NOTE | 2022-10-27 08:10 | NUR ---
Lasix [address] held[address] Will clarify with Dr Maria if he wants to continue Pt recently dialyzed with 1500 Out Cont with plan of care
[2022-10-27] MEDS: POTASSIUM CL. PREMIX PERIPHER. 50 ML IV SCH ×3 (08:23→10:40)
[2022-10-27] MEDS: CEFEPIME 1 GM in IV D5W 50 ML IV SCH (08:45)
[2022-10-27] MEDS: GABAPENTIN 100 MG CAPSULE PO SCH (09:00)
[2022-10-27] MEDS: PANTOPRAZOLE 40 MG VIAL IV SCH ×2 (09:06→21:11)
[2022-10-27] MEDS: VANCOMYCIN 500 MG in IV D5W 100ml IV SCH (10:00)
--- NOTE | 2022-10-27 10:20 | NUR ---
RT PER DR DOWELL PATIENT WAS PLACED ON HFNC 40L 100%. RN AWARE Addendum: 10/27/22 at 1021 by FRANKY CONTEH RT Amended: Links added.
[2022-10-27] MEDS: INSULIN REGULAR, HUMAN 100 UNIT/ML 3 ML VIAL SQ PRN ×2 (11:41→23:54)
--- NOTE | 2022-10-27 19:30 | NUR ---
PT AWAKE. A/OX1. TAJIK SPEAKING. GEOSPATIAL SYSTEMS INTEGRATOR SHOWING A FIB. ON HIGH FLOW AT 40L, Fio2 at 100%. SAT 98%. NPO. FC PATENT URINE DRAINING. IV ACCESS ON RT FEMORAL HD CATH INTACT AND ON RT UPPER ARM PICC LINE INFUSING TPN 40 ML/HR. LEVO 8MG INFUSING AT 0.1MCG/KG/MIN. SAFETY MEASURES IN PLACE. WILL CONTINUE PLAN OF CARE.
[2022-10-27] MEDS: VANCOMYCIN HCL 0.75 GM in IV D5W 250 ML IV SCH (21:12)
[2022-10-27] MEDS: HYDROMORPHONE INJ 2 MG/ML DISP.SYRIN IV PRN (21:17)
--- NOTE | 2022-10-27 21:20 | NUR ---
Abd Pain 9/10. PRN Dilaudid 2mg IV given as needed and as ordered.
[2022-10-28] VITALS (84 sets, daily range): BP systolic 60–151; BP diastolic 36–97
[2022-10-28] MEDS: NOREPINEPHRINE 8 MG in IV NS 0.9% 242 ML IV PRN ×2 (02:59→15:50)
[2022-10-28] MEDS: HYDROCORTISONE SOD SUCCINATE 100 MG/2 ML VIAL IV SCH ×3 (05:06→21:07)
[2022-10-28] MEDS: BLOOD SUGAR DIAGNOSTIC 1 EACH STRIP IN SCH ×4 (05:07→23:59)
[2022-10-28] MEDS: INSULIN REGULAR, HUMAN 100 UNIT/ML 3 ML VIAL SQ PRN ×3 (05:14→18:04)
[2022-10-28] MEDS: HYDROMORPHONE INJ 2 MG/ML DISP.SYRIN IV PRN ×2 (05:14→16:37)
--- NOTE | 2022-10-28 05:15 | NUR ---
Abd Pain 9/10. PRN Dilaudid 2mg IV given as needed and as ordered.
[2022-10-28 06:00] LABS: BASOPHILS % (AUTO) 0.3 % (0.0-2.0); EOSINOPHILS % (AUTO) 0.2 % (0.0-6.0); HEMATOCRIT 32 % (39-51); HEMOGLOBIN 10.6 g/dL (13.5-17.5); LYMPHOCYTES # (AUTO) 0.4 K/uL (0.8-4.8); LYMPHOCYTES % (AUTO) 2.5 % (20.0-44.0); MEAN CORPUSCULAR HGB CONC 34 g/dl (31.0-36.0); MEAN CORPUSCULAR VOLUME 93 fL (80-96); MONOCYTES # (AUTO) 0.5 K/uL (0.1-1.30); MONOCYTES % (AUTO) 3.2 % (2.0-12.0); NEUTROPHILS # (AUTO) 13.4 K/uL (1.8-8.9); NEUTROPHILS % (AUTO) 93.8 % (43.0-81.0); PLATELET COUNT (AUTO) 260 K/uL (150-450); RED BLOOD CELL COUNT(AUTO) 3.41 MIL/uL (4.5-6.0); WHITE BLOOD COUNT (AUTO) 14.3 K/uL (4.3-11.0)
[2022-10-28 06:41] LABS: CALCIUM, SERUM 7.8 mg/dL (8.5-10.1); CARBON DIOXIDE 18 mmol/L (21-32); CHLORIDE 107 mmol/L (98-107); CREATININE 4.3 mg/dL (0.6-1.3); GLUCOSE 145 mg/dL (74-106); MAGNESIUM 2.1 mg/dL (1.8-2.4); PHOSPHORUS 1.9 mg/dL (2.5-4.9); POTASSIUM 2.9 mmol/L (3.5-5.1); SODIUM SERUM 141 mmol/L (136-145)
[2022-10-28 07:20] LABS: UREA NITROGEN, BLOOD 105 mg/dL (7-18)
[2022-10-28] MEDS: LEVOTHYROXINE SODIUM 50 MCG TABLET PO SCH (07:30)
[2022-10-28] MEDS: FUROSEMIDE 20 MG/2 ML VIAL IV SCH (08:27)
[2022-10-28] MEDS: GABAPENTIN 100 MG CAPSULE PO SCH (08:28)
[2022-10-28] MEDS: PANTOPRAZOLE 40 MG VIAL IV SCH ×2 (08:40→21:06)
[2022-10-28] MEDS: CEFEPIME 1 GM in IV D5W 50 ML IV SCH (08:40)
[2022-10-28 08:53] LABS: ABG BASE EXCESS -18.5 mmol/L; ABG OXYGEN SATURATION 94.3 % (92.0-98.5); ABG PCO2 23.3 mmHg (35.0-45.0); ABG PH 7.169 (7.350-7.450); ABG PO2 76.6 mmHg (75.0-100.0); AaDO2 613.1 mmHg; COHb 0.7 % (0.5-1.5); MetHb 0.2 % (0.0-1.5); O2Hb 93.5 % (94.0-97.0); SITE, ABG Right Radial; VENT MODE, BG NRB 100%
[2022-10-28] MEDS ORDERED: HEPARIN SODIUM, PORCINE 5000 UNITS/1 ML VIAL IVF ONE (09:27)
[2022-10-28] MEDS: POTASSIUM CL. PREMIX PERIPHER. 50 ML IV SCH ×4 (10:00→12:29)
--- NOTE | 2022-10-28 10:37 | NUR ---
SS NOTE: SW called the pt.'s caregiver, Paula Farris [phone] and left voicemail with call back number.
--- NOTE | 2022-10-28 11:18 | NUR ---
SS note: The pt.'s caregiver, Paula Farris [phone] called SW back and stated he would bring a copy of the advanced healthcare directive to SW today. Noted. SW will review and place in the chart.
[2022-10-28] MEDS: ONDANSETRON HCL/PF 4 MG/2 ML VIAL IVP PRN (15:41)
--- NOTE | 2022-10-28 15:41 | NUR ---
SS note: The pt.'s caregiver, Paula Farris [phone] brought Avanced healthcare directive and it was placed in the pt.'s chart. SW notified the CRN and JEWELRY SETTER, Jane Antonio.
[2022-10-28] MEDS ORDERED: TPN BAG #11 IV SCH ×4 (17:00)
--- NOTE | 2022-10-28 19:30 | NUR ---
CAMERA ASSEMBLER Opening Note Received patient in bed, asleep. Currently on High Flow O2 40 L @ 100%, tolerating well, sating @ 95%. No s/sx of acute respi distress noted at this time. No SOB. Breathing is even and unlabored. bus monitor reads SR at this time with HR in the 80s. MAURICIO PICC line noted, running levo @ 0.2 @ mcg/kg/min, patent and intact. R Femoral HD cath with pigtail in place, running TPN @ 40 cc/hr. Bilateral soft wrist restraints in place, skin and circulation within normal limits at this time. Biliary drain pouch noted, no output. FC draining yellow urine by gravity. All safety measures in place: bed locked in low position, bed alarm on, hob elevated, sr up x 3, call light within reach. Will continue to monitor pt.
[2022-10-29] VITALS (75 sets, daily range): BP systolic 71–140; BP diastolic 37–95
[2022-10-29] MEDS: NOREPINEPHRINE 8 MG in IV NS 0.9% 242 ML IV PRN (01:11)
[2022-10-29] MEDS: HYDROCORTISONE SOD SUCCINATE 100 MG/2 ML VIAL IV SCH ×3 (05:08→21:47)
[2022-10-29 05:25] LABS: HEMATOCRIT 28 % (39-51); HEMOGLOBIN 9.4 g/dL (13.5-17.5); LYMPHOCYTES # (AUTO) 0.6 K/uL (0.8-4.8); LYMPHOCYTES % (AUTO) 4.2 % (20.0-44.0); MEAN CORPUSCULAR HGB CONC 33 g/dl (31.0-36.0); MEAN CORPUSCULAR VOLUME 93 fL (80-96); MONOCYTES # (AUTO) 0.4 K/uL (0.1-1.30); MONOCYTES % (AUTO) 2.4 % (2.0-12.0); NEUTROPHILS # (AUTO) 13.7 K/uL (1.8-8.9); NEUTROPHILS % (AUTO) 93.4 % (43.0-81.0); PLATELET COUNT (AUTO) 168 K/uL (150-450); RED BLOOD CELL COUNT(AUTO) 3.04 MIL/uL (4.5-6.0); WHITE BLOOD COUNT (AUTO) 14.7 K/uL (4.3-11.0)
[2022-10-29 05:32] LABS: CALCIUM, SERUM 7.6 mg/dL (8.5-10.1); CARBON DIOXIDE 22 mmol/L (21-32); CHLORIDE 104 mmol/L (98-107); CREATININE 4.4 mg/dL (0.6-1.3); GLUCOSE 134 mg/dL (74-106); PHOSPHORUS 2.3 mg/dL (2.5-4.9); SODIUM SERUM 140 mmol/L (136-145)
[2022-10-29 05:34] LABS: UREA NITROGEN, BLOOD 108 mg/dL (7-18)
[2022-10-29 05:36] LABS: POTASSIUM 2.5 mmol/L (3.5-5.1)
--- NOTE | 2022-10-29 05:42 | NUR ---
RN NOTE RECEIVED CRITICAL LAB REPORT FOR POTASSIUM - 2.5 MD NOTIFIED. ORDERED KCL 60 MEQ IV. WILL CARRY OUT ORDER.
--- NOTE | 2022-10-29 05:58 | NUR ---
RN NOTE PT IS MOANING AND RESTLESS IN BED, INDICATION OF PAIN. DILAUDID PRN GIVEN.
[2022-10-29] MEDS: HYDROMORPHONE INJ 2 MG/ML DISP.SYRIN IV PRN ×2 (05:59→12:05)
[2022-10-29] MEDS: BLOOD SUGAR DIAGNOSTIC 1 EACH STRIP IN SCH ×4 (06:04→23:48)
[2022-10-29] MEDS: POTASSIUM CL. PREMIX PERIPHER. 50 ML IV SCH ×11 (06:08→23:11)
[2022-10-29] MEDS: INSULIN REGULAR, HUMAN 100 UNIT/ML 3 ML VIAL SQ PRN ×5 (06:17→23:48)
--- NOTE | 2022-10-29 06:46 | NUR ---
PRODUCTION COUNTER CLOSING NOTE PT STILL ON LEVO @ 0.06 MCG/KG/MIN. KCL @ 50 CC/HR CURRENTLY RUNNING. 5 MORE BAGS TO BE INFUSED. ALL DUE MEDS GIVEN. NEEDS MET. PM CARE/ORAL CARE DONE. TURNED AND REPOSITIONED. WILL ENDORSE TO AM SHIFT NURSE FOR LUCÍA.
--- NOTE | 2022-10-29 07:05 | NUR ---
RN NOTES RECEIVED PT ON BED , BOLIVIAN SPEAKING , ALERT / MOANING ,LILIANA PAIN , ON HIGH FLOW O2 80% AND 35 L , O2 SAT 96%, ON TELE SR HR IN 80'S , FLYNN DRAINING TO GRAVITY WITH YELLOW URINE, TPN AT 40CC/HR , IV SITE CDI, LEVO AT 0.06 MCG/KG/MIN RUNNING FOR BP SUPPORT, DRAINAGE BAG ATTACHED TO RIGHT UPPER CHEST , NO DRAINAGE NOTED , SR UPx3, CALL LIGHT WITHIN EASY REACH, BED LOCKED AND IN LOWEST POSITION, CONTINUE TO MONITOR
[2022-10-29] MEDS: PANTOPRAZOLE 40 MG VIAL IV SCH ×2 (08:21→21:29)
[2022-10-29] MEDS: LEVOTHYROXINE SODIUM 50 MCG TABLET PO SCH ×2 (08:21→08:30)
[2022-10-29] MEDS: CEFEPIME 1 GM in IV D5W 50 ML IV SCH (08:28)
[2022-10-29] MEDS: GABAPENTIN 100 MG CAPSULE PO SCH (08:49)
[2022-10-29] MEDS: VANCOMYCIN HCL 0.75 GM in IV D5W 250 ML IV SCH (10:03)
[2022-10-29 11:26] LABS: ABG BASE EXCESS -6.2 mmol/L; ABG PCO2 31.9 mmHg (35.0-45.0); ABG PH 7.372 (7.350-7.450); ABG PO2 58.7 mmHg (75.0-100.0); AaDO2 622.4 mmHg; COHb 0.3 % (0.5-1.5); MetHb 0.3 % (0.0-1.5); O2Hb 88.5 % (94.0-97.0); SITE, ABG Right Radial; VENT MODE, BG HIGH FLOW 100%
--- NOTE | 2022-10-29 13:00 | NUR ---
RN NOTES SOLU-CORTEF IS NOT AVAILABLE PER PHARMACY AND IS NOT IN STOCK ,NOTIFED
[2022-10-29] MEDS ORDERED: Sodium Phosphate 15 MMOL in IV NS 0.9% 245 ML IV SCH (15:00)
[2022-10-29] MEDS: ONDANSETRON HCL/PF 4 MG/2 ML VIAL IVP PRN (15:13)
[2022-10-29] MEDS ORDERED: TPN ADDITIVES IV SCH ×4 (17:00)
[2022-10-29] MEDS ORDERED: TPN #12 IV SCH ×4 (17:00)
[2022-10-29] MEDS ORDERED: MVI IV SCH ×4 (17:00)
[2022-10-29] MEDS ORDERED: [UNRECOGNIZED DRUG - OTHER] IV SCH ×4 (17:00)
[2022-10-29] MEDS ORDERED: TRACE ELEMENTS IV SCH ×4 (17:00)
[2022-10-29] MEDS ORDERED: VIT K IV SCH ×4 (17:00)
[2022-10-29] MEDS ORDERED: PEDI NO 1 IV SCH ×4 (17:00)
--- NOTE | 2022-10-29 18:00 | NUR ---
RN NOTES pt awake oriented to his name, on hi flow O2 at 35 liter, 80% fio2 o2sat 100% at this time a.fib on monitor, on levophed gtt at 0.1mcg/kg/min,for bp support remains npo tpn at 40 ml per hour, guadalupe in place, no bowel movement, no fever, resting quietly , will endorse to next shift for continuity of care
--- NOTE | 2022-10-29 18:50 | NUR ---
RN NOTES JUSTICE COURT JUDGE NOTIFIED REGARDING K=3.1
[2022-10-29 18:58] LABS: LYMPHOCYTES % (MANUAL) 7 % (16-48); MONOCYTES % (MANUAL) 1 % (0-11.0); NEUTROPHILS % (MANUAL) 92 (42-76)
--- NOTE | 2022-10-29 19:30 | NUR ---
RN NOTES RECEIVED REPORT FROM MORNING RN. PATIENT ON HIGH FLOW NASAL @ FIO2 30% NO SOB NO DISTRESS NOTED AT THIS TIME. WITH R UA PICC LINE TRIPLE LUMEN PATENT FLUSHES WELL RUNNING TPN @ 40CC/HR, LEVOPHED @ 0.06 MCG/KG/MIN. R FEMORAL PIGTAIL PATENT NO BLEEDING NO REDNESS NOTED. FLYNN CATHETER PATENT CONNECTED TO URINE BAG DRAINING YELLOWISH URINE OUTPUT. ALL SAFETY MEASURES IN PLACE AT ALL TIMES. HOB ELEVATED. BILATERAL SOFT WRIST RESTRAINTS IN PLACE. WILL CLOSELY MONITOR THE PATIENT
[2022-10-29] MEDS ORDERED: HYDROCORTISONE SOD SUCCINATE 100 MG/2 ML VIAL ONE (21:45)
[2022-10-30] VITALS (92 sets, daily range): BP systolic 79–160; BP diastolic 38–98
[2022-10-30] MEDS: NOREPINEPHRINE 8 MG in IV NS 0.9% 242 ML IV PRN (01:54)
[2022-10-30 05:27] LABS: BASOPHILS % (AUTO) 0.1 % (0.0-2.0); HEMATOCRIT 27 % (39-51); HEMOGLOBIN 8.9 g/dL (13.5-17.5); LYMPHOCYTES # (AUTO) 0.5 K/uL (0.8-4.8); LYMPHOCYTES % (AUTO) 3.4 % (20.0-44.0); MEAN CORPUSCULAR HGB CONC 34 g/dl (31.0-36.0); MEAN CORPUSCULAR VOLUME 93 fL (80-96); MONOCYTES # (AUTO) 0.3 K/uL (0.1-1.30); MONOCYTES % (AUTO) 2.1 % (2.0-12.0); NEUTROPHILS # (AUTO) 14.2 K/uL (1.8-8.9); NEUTROPHILS % (AUTO) 94.4 % (43.0-81.0); PLATELET COUNT (AUTO) 139 K/uL (150-450); RED BLOOD CELL COUNT(AUTO) 2.87 MIL/uL (4.5-6.0)
[2022-10-30 05:28] LABS: CALCIUM, SERUM 7.3 mg/dL (8.5-10.1); CARBON DIOXIDE 22 mmol/L (21-32); CHLORIDE 104 mmol/L (98-107); CREATININE 4.9 mg/dL (0.6-1.3); GLUCOSE 156 mg/dL (74-106); PHOSPHORUS 3.6 mg/dL (2.5-4.9); POTASSIUM 3.5 mmol/L (3.5-5.1); SODIUM SERUM 139 mmol/L (136-145)
[2022-10-30 05:35] LABS: UREA NITROGEN, BLOOD 121 mg/dL (7-18)
[2022-10-30] MEDS: HYDROCORTISONE SOD SUCCINATE 100 MG/2 ML VIAL IV SCH (05:45)
[2022-10-30] MEDS: INSULIN REGULAR, HUMAN 100 UNIT/ML 3 ML VIAL SQ PRN ×4 (05:55→23:43)
[2022-10-30] MEDS: BLOOD SUGAR DIAGNOSTIC 1 EACH STRIP IN SCH ×4 (06:00→23:41)
--- NOTE | 2022-10-30 06:43 | NUR ---
RN NOTES PATIENT REMAINS IN HF @ 35% FIO2 TOLERATING WELL NO DISTRESS NOTED. IV ACCESS PATENT RUNNING TPN @ 40CC/HR, LEVO @ 0.04MCG/KG/MIN. FLYNN PATENT DRAINING DARK ALICIA OUTPUT. BILIARY DRAIN POUCH IN PLACE NO OUTPUT. WILL ENDORSE TO MORNING SHIFT FOR LUCÍA
--- NOTE | 2022-10-30 07:05 | NUR ---
RN NOTES RECEIVED PT ON BED , BARBADIAN SPEAKING , ALERT / MOANING AT TIMES , LILIANA PAIN , ON HIGH FLOW O2 80% AND 35 L , O2 SAT 96%, ON TELE A.FIB HR IN 80'S , FLYNN DRAINING TO GRAVITY WITH YELLOW URINE, TPN AT 40CC/HR , IV SITE CDI, LEVO AT 0.02 MCG/KG/MIN RUNNING FOR BP SUPPORT, DRAINAGE BAG ATTACHED TO RIGHT UPPER CHEST , NO DRAINAGE NOTED , SR UPx3, CALL LIGHT WITHIN EASY REACH, BED LOCKED AND IN LOWEST POSITION, CONTINUE TO MONITOR
[2022-10-30] MEDS: PANTOPRAZOLE 40 MG VIAL IV SCH ×2 (08:01→21:07)
[2022-10-30] MEDS: CEFEPIME 1 GM in IV D5W 50 ML IV SCH (08:01)
[2022-10-30] MEDS: GABAPENTIN 100 MG CAPSULE PO SCH (08:01)
--- NOTE | 2022-10-30 11:08 | NUR ---
SS Note: Director Damaris Goode, was informed by [employer] Wheel Engraver Tyrone Hare who advised that the DPOA document is acceptable.
[2022-10-30] MEDS: methylPREDNISolone SOD SUCC 40 MG/ML VIAL IV SCH ×2 (13:23→21:02)
[2022-10-30] MEDS: HYDROMORPHONE INJ 2 MG/ML DISP.SYRIN IV PRN (13:26)
[2022-10-30] MEDS: ONDANSETRON HCL/PF 4 MG/2 ML VIAL IVP PRN (13:26)
[2022-10-30] MEDS ORDERED: TPN BAG #13 IV SCH ×3 (17:00)
--- NOTE | 2022-10-30 18:18 | NUR ---
RN NOTES PT IS LETHARGIC , ON HIGH FLOW O2 AT 35L AND 65% , O2 SAT WNL, a.fib on monitor, on levophed gtt at 0.1mcg/kg/min for bp support remains ,npo. TPN at 40 ml per hour, guadalupe in place, no bowel movement, no fever, will endorse to next shift for continuity of care
--- NOTE | 2022-10-30 19:30 | NUR ---
RN NOTES RECEIVED REPORT FROM MORNING RN. PATIENT ON HIGH FLOW NASAL @ FIO2 30% NO SOB NO DISTRESS NOTED AT THIS TIME. WITH R UA PICC LINE TRIPLE LUMEN PATENT FLUSHES WELL RUNNING TPN @ 40CC/HR, LEVOPHED @ 0.01 MCG/KG/MIN. R FEMORAL PIGTAIL PATENT NO BLEEDING NO REDNESS NOTED. FLYNN CATHETER PATENT CONNECTED TO URINE BAG DRAINING DARK YELLOW URINE OUTPUT. BILIARY DRAIN INTACT NO OUTPUT NOTED AT THIS TIME.ALL SAFETY MEASURES IN PLACE AT ALL TIMES. HOB ELEVATED. BILATERAL SOFT WRIST RESTRAINTS IN PLACE. WILL CLOSELY MONITOR THE PATIENT
[2022-10-30] MEDS: VANCOMYCIN HCL 0.75 GM in IV D5W 250 ML IV SCH (22:00)
--- NOTE | 2022-10-30 22:42 | NUR ---
RN NOTES VANCOMYCIN DOSE HELD DUE TO VANCO LEVEL 27.
[2022-10-30 23:12] LABS: BASOPHILS % (MANUAL) 0 % (0.0-2.0); EOSINOPHILS % (MANUAL) 0 % (0-4); LYMPHOCYTES % (MANUAL) 6 % (16-48); MONOCYTES % (MANUAL) 5 % (0-11.0); NEUTROPHILS % (MANUAL) 89 (42-76)
[2022-10-31] VITALS (87 sets, daily range): BP systolic 81–169; BP diastolic 43–91
[2022-10-31] MEDS: NOREPINEPHRINE 8 MG in IV NS 0.9% 242 ML IV PRN (00:39)
[2022-10-31] MEDS: methylPREDNISolone SOD SUCC 40 MG/ML VIAL IV SCH ×3 (05:16→20:29)
[2022-10-31] MEDS: BLOOD SUGAR DIAGNOSTIC 1 EACH STRIP IN SCH ×4 (05:22→23:38)
[2022-10-31] MEDS: INSULIN REGULAR, HUMAN 100 UNIT/ML 3 ML VIAL SQ PRN ×4 (05:23→23:40)
[2022-10-31 05:37] LABS: BASOPHILS % (AUTO) 0.1 % (0.0-2.0); HEMATOCRIT 27 % (39-51); HEMOGLOBIN 9.1 g/dL (13.5-17.5); LYMPHOCYTES # (AUTO) 0.4 K/uL (0.8-4.8); LYMPHOCYTES % (AUTO) 2.7 % (20.0-44.0); MEAN CORPUSCULAR HGB CONC 33 g/dl (31.0-36.0); MEAN CORPUSCULAR VOLUME 94 fL (80-96); MONOCYTES # (AUTO) 0.2 K/uL (0.1-1.30); MONOCYTES % (AUTO) 1.4 % (2.0-12.0); NEUTROPHILS # (AUTO) 13.8 K/uL (1.8-8.9); NEUTROPHILS % (AUTO) 95.8 % (43.0-81.0); PLATELET COUNT (AUTO) 151 K/uL (150-450); WHITE BLOOD COUNT (AUTO) 14.4 K/uL (4.3-11.0)
[2022-10-31 05:51] LABS: CALCIUM, SERUM 7.2 mg/dL (8.5-10.1); CARBON DIOXIDE 21 mmol/L (21-32); CHLORIDE 104 mmol/L (98-107); CREATININE 5.4 mg/dL (0.6-1.3); GLUCOSE 182 mg/dL (74-106); MAGNESIUM 2.1 mg/dL (1.8-2.4); PHOSPHORUS 3.8 mg/dL (2.5-4.9); POTASSIUM 3.1 mmol/L (3.5-5.1); SODIUM SERUM 138 mmol/L (136-145)
[2022-10-31 05:54] LABS: UREA NITROGEN, BLOOD 134 mg/dL (7-18)
[2022-10-31 05:56] LABS: TRIGLYCERIDES 302 mg/dL (30-150)
--- NOTE | 2022-10-31 06:47 | NUR ---
RN NOTES PATIENT REMAINS IN HF @ 35% FIO2 TOLERATING WELL NO DISTRESS NOTED. IV ACCESS PATENT RUNNING TPN @ 40CC/HR, LEVO @ 0.02MCG/KG/MIN. FLYNN PATENT DRAINING DARK ALICIA OUTPUT. BILIARY DRAIN POUCH IN PLACE NO OUTPUT. WILL ENDORSE TO MORNING SHIFT FOR LUCÍA
[2022-10-31] MEDS: LEVOTHYROXINE SODIUM 50 MCG TABLET PO SCH (07:30)
[2022-10-31] MEDS: GABAPENTIN 100 MG CAPSULE PO SCH (08:31)
[2022-10-31] MEDS: PANTOPRAZOLE 40 MG VIAL IV SCH ×2 (08:36→20:29)
[2022-10-31] MEDS: CEFEPIME 1 GM in IV D5W 50 ML IV SCH (08:36)
[2022-10-31] MEDS: IV NS 0.9% 250 ML IV PRN (08:53)
[2022-10-31] MEDS: POTASSIUM CL. PREMIX PERIPHER. 50 ML IV SCH ×3 (09:30→11:37)
--- NOTE | 2022-10-31 15:28 | NUR ---
MELISSA-DYLLAN AWARE OF CORTISOL LEVEL>180 FROM YESTERDAY'S DRAW RESULTED FROM LAB [facility]. , RESULT REPORTED BY SOMMER OF LAB DEPT. TO IT SOLUTIONS ARCHITECT.
[2022-10-31] MEDS ORDERED: methylPREDNISolone SOD SUCC 40 MG/ML VIAL IV ONE (16:00)
[2022-10-31] MEDS ORDERED: TPN BAG #14 IV SCH ×3 (17:00)
--- NOTE | 2022-10-31 18:55 | NUR ---
SPOKE WITH NATASHA-PHARMACIST REGARDING SOLUMEDROL 1OOMG X 1 DOSE ORDER, PER NATASHA "I SPOKE WITH HEALTH TYPE TECHNICIAN-DYLLAN AND HEALTH TYPE TECHNICIAN DISCONTINUED IT."
--- NOTE | 2022-10-31 19:30 | NUR ---
RN NOTE RECEIVED PT IN BED, ALERT, AWAKE, ORIENTED TO SELF ONLY. PT ON HFNC 60%FIO2, O2 SAT 99%. AFEBRILE. CURRENTLY INFUSING LEVO DOSE RATE AT 0.06MCG/KG/MIN, TPN AT 40ML/HR ON MAURICIO PICC LINE. R HD CATH INTACT, DD IN PLACED. FLYNN CATH PATENT, DRAINING DARK ALICIA URINE. HOB ELEVATED. SAFETY PRECAUTION IMPLEMENNTED. WILL CONT POC
[2022-11-01] VITALS (75 sets, daily range): BP systolic 84–140; BP diastolic 48–88
[2022-11-01] MEDS: NOREPINEPHRINE 8 MG in IV NS 0.9% 242 ML IV PRN ×2 (01:11→01:23)
[2022-11-01] MEDS: methylPREDNISolone SOD SUCC 40 MG/ML VIAL IV SCH ×3 (04:57→21:14)
[2022-11-01] MEDS: HYDROMORPHONE INJ 2 MG/ML DISP.SYRIN IV PRN ×2 (04:58→13:40)
[2022-11-01 05:05] LABS: BASOPHILS % (AUTO) 0.1 % (0.0-2.0); HEMATOCRIT 27 % (39-51); HEMOGLOBIN 8.7 g/dL (13.5-17.5); LYMPHOCYTES # (AUTO) 0.5 K/uL (0.8-4.8); LYMPHOCYTES % (AUTO) 2.5 % (20.0-44.0); MEAN CORPUSCULAR HGB CONC 33 g/dl (31.0-36.0); MEAN CORPUSCULAR VOLUME 95 fL (80-96); MONOCYTES # (AUTO) 0.4 K/uL (0.1-1.30); MONOCYTES % (AUTO) 2.1 % (2.0-12.0); NEUTROPHILS # (AUTO) 17.9 K/uL (1.8-8.9); NEUTROPHILS % (AUTO) 95.3 % (43.0-81.0); PLATELET COUNT (AUTO) 154 K/uL (150-450); RED BLOOD CELL COUNT(AUTO) 2.84 MIL/uL (4.5-6.0); WHITE BLOOD COUNT (AUTO) 18.8 K/uL (4.3-11.0)
[2022-11-01 05:23] LABS: CARBON DIOXIDE 23 mmol/L (21-32); CHLORIDE 105 mmol/L (98-107); CREATININE 5.8 mg/dL (0.6-1.3); GLUCOSE 179 mg/dL (74-106); PHOSPHORUS 3.6 mg/dL (2.5-4.9); POTASSIUM 3.2 mmol/L (3.5-5.1); SODIUM SERUM 141 mmol/L (136-145)
[2022-11-01 05:34] LABS: UREA NITROGEN, BLOOD 147 mg/dL (7-18)
[2022-11-01] MEDS: BLOOD SUGAR DIAGNOSTIC 1 EACH STRIP IN SCH ×3 (06:11→18:06)
[2022-11-01] MEDS: INSULIN REGULAR, HUMAN 100 UNIT/ML 3 ML VIAL SQ PRN ×3 (06:14→18:08)
--- NOTE | 2022-11-01 07:00 | NUR ---
RN NOTE VITAL SIGNS REMAINS STABLE. NO SIGNIFICANT CHANGES NOTED HFNC 20L/FIO2-60%, O2 SAT-99%. LEVO AT DOSE RATE 0.06MCG/KG/MIN, TPN AT 40ML/HR. FC IN PLACED, DRAINING DARK ALICIA URINE, WITH MINIMAL SEDIMENTATION NOTED. PAIN MEDICATION GIVEN ORDERED, EFFECTIVE. ALL DUE MEDICATIONS GIVEN ORDERED. ALL NEEDS ATTENDED. HOB ELEVATED. SAFETY PRECAUTION IMPLEMENTED. WILL ENDORSE TO AM SHIFT FOR LUCÍA.
[2022-11-01] MEDS: LEVOTHYROXINE SODIUM 50 MCG TABLET PO SCH (07:30)
[2022-11-01] MEDS: PANTOPRAZOLE 40 MG VIAL IV SCH ×2 (08:08→21:14)
[2022-11-01] MEDS: GABAPENTIN 100 MG CAPSULE PO SCH (08:08)
[2022-11-01] MEDS: CEFEPIME 1 GM in IV D5W 50 ML IV SCH (08:08)
[2022-11-01] MEDS: IV NS 0.9% 250 ML IV PRN (08:27)
[2022-11-01] MEDS ORDERED: VANCOMYCIN HCL 0.75 GM in IV D5W 250 ML IV SCH (09:00)
[2022-11-01] MEDS: POTASSIUM CL. PREMIX PERIPHER. 50 ML IV SCH ×3 (09:50→11:56)
--- NOTE | 2022-11-01 12:50 | NUR ---
ICU/RN MELISSA MIJARES AT BEDSIDE, TALKING TO POA ABOUT COMFORT MEASURES AND DESIRE FOR END OF LIFE CARE. PER POA, SHE WOULD LIKE TO INITIATE COMFORT TOMORROW AND WILL LET STAFF KNOW WHEN SHE IS READY.
--- NOTE | 2022-11-01 13:45 | NUR ---
ICU/RN PT SHOWING SIGNS OF PAIN AND DISCOMFORT. PT GIVEN DILAUDID PRN IV. VITAL SIGNS STABLE
[2022-11-01] MEDS ORDERED: TPN BAG #15 IV SCH ×3 (17:00)
[2022-11-02] VITALS (31 sets, daily range): BP systolic 92–121; BP diastolic 51–76
[2022-11-02] MEDS: BLOOD SUGAR DIAGNOSTIC 1 EACH STRIP IN SCH ×3 (00:33→12:01)
[2022-11-02 05:27] LABS: CALCIUM, SERUM 6.5 mg/dL (8.5-10.1); CARBON DIOXIDE 23 mmol/L (21-32); CHLORIDE 105 mmol/L (98-107); CREATININE 5.5 mg/dL (0.6-1.3); GLUCOSE 327 mg/dL (74-106); PHOSPHORUS 4.3 mg/dL (2.5-4.9); POTASSIUM 3.3 mmol/L (3.5-5.1); SODIUM SERUM 141 mmol/L (136-145)
[2022-11-02] MEDS: methylPREDNISolone SOD SUCC 40 MG/ML VIAL IV SCH ×2 (05:27→12:01)
[2022-11-02] MEDS: INSULIN REGULAR, HUMAN 100 UNIT/ML 3 ML VIAL SQ PRN ×2 (05:29→12:11)
[2022-11-02 05:31] LABS: UREA NITROGEN, BLOOD 153 mg/dL (7-18)
[2022-11-02] MEDS: LEVOTHYROXINE SODIUM 50 MCG TABLET PO SCH (07:30)
--- NOTE | 2022-11-02 07:30 | NUR ---
RN OPENING NOTE PT RECEIVED IN BED WITH HOB >40 DEGREES. PT IS ON NC 5L O2 SAT 97% AND A/OX1. FC IS IN PLACE DRAINING URINE TO GRAVITY. IV ACCESS R UA PICC INFUSING WITH TPN @40ML/HR AND FEMORAL HD CATH. BED IS LOKCED IN LOWEST POSITION X2 BED RAILS UP AND ALL HOSPITAL SAFETY MEASURES ARE IN PLACE. WILL CONTINUE TO MONITOR THIS SHIFT.
[2022-11-02] MEDS: GABAPENTIN 100 MG CAPSULE PO SCH (08:01)
[2022-11-02] MEDS: PANTOPRAZOLE 40 MG VIAL IV SCH (08:14)
[2022-11-02] MEDS: CEFEPIME 1 GM in IV D5W 50 ML IV SCH (08:14)
--- NOTE | 2022-11-02 15:18 | NUR ---
RN NOTE: COMFORT MEASURES DPOA HAS REQUESTED PATIENT BE PLACED ON COMFORT MEASURES ONLY. PROVIDER HAS BEEN NOTIFIED AT THIS TIME
[2022-11-02] MEDS ORDERED: GLYCOPYRROLATE 0.2 MG/ML VIAL IV PRN (15:30)
[2022-11-02] MEDS ORDERED: MORPHINE SULFATE PF DRIP 250 MG in IV D5W 240 ML IV PRN ×2 (15:30→16:30)
[2022-11-02] MEDS ORDERED: LORAZEPAM INJ 2 MG/ML VIAL IV PRN (15:30)
[2022-11-02] MEDS: SCOPOLAMINE PATCH 1 MG/72HR TD SCH (16:29)
[2022-11-02] MEDS ORDERED: TPN BAG #16 IV SCH ×3 (17:00)
--- NOTE | 2022-11-02 17:05 | NUR ---
RN NOTE: MORPHINE DRIP RECEIVED 2 BAGS OF MORPHINE DRIP FROM PHARMACY. 1 BAG WILL BE PLACED IN VAULT AND 1 BAG READY TO SCAN AND HANG.
--- NOTE | 2022-11-02 18:50 | NUR ---
RN NOTE: TRANSFER PT TRANSFERRED TO /2 USING ACLS PROTOCOLS AND TRANSFERRED WITH RN. REPORT GIVEN TO SINA HEARD. PT HAS NO BELONGINGS. PT TRANSFERRED WITH EXTRA BAG OF MORPHINE AND ENDORSED TO SINA HEARD WITH BOTH PINK SHEETS.
--- NOTE | 2022-11-02 20:43 | NUR ---
RN MS OPENING NOTES RECEIVED PATIENT IN BED, A/O X 1 ABLE TO ANSWER YES OR NO. FOR COMFORT MEASURES ONLY. ON MODERATE HIGH BACKREST POSITION. WITH ONGOING MORPHINE DRIP AT 4ML/HR INFUSING WELL AT MAURICIO PICC LINE. NOTED COLOSTOMY AT RIGHT UPPER ABDOMEN AND RIGHT FEMORAL CATHETER FOR HD. ON COMFORTABLE POSITION NO APPARENT DISTRESS NOTED AT THIS TIME. KEPT PATIENT WARM AND COMFORTABLE,KEPT SIDE RAILS UP X 3 ALL THE TIME. KEPT BED ON LOWER LOCKED POSITION. WILL CONTINUE TO MONITOR.
[2022-11-03] VITALS: BP 92/52
[2022-11-03 04:00] VITALS: BP 92/52
--- NOTE | 2022-11-03 06:45 | NUR ---
RN MS CLOSING NOTES PATIENT IS AT BED ASLEEP AND COMFORTABLE. ON MODERATE HIGH BACK REST POSITION. ON OXYGEN VIA NASAL CANNULA AT 5LPM SATURATING WELL. ON DNR/DNI STATUS AND FOR COMFORT MEASURES. WITH IV ACCESS AT [facility] PIC LINE CONNECTED TO MORPHINE DRIP AT 4ML/HR INFUSING WELL. WITH COLOSTOMY BAG. ON NPO MAINTAINED. NO S/S OF PAIN OR DISCOMFORT AT THIS TIME. NO S/S OF SOB OR DISTRESS AT THIS TIME. KEPT BED ON LOWER LOCKED POSITION. KEPT SIDE RAILS UP X 3 ALL THE TIME. KEPT CALL LIGHT WITHIN AT REACH. SAFETY PRECAUTIONS MAINTAINED. COMFORT MEASURES MAINTAINED ALL THE TIME. PM CARE RENDERED. WILL CONTINUE TO ENDORSED TO AM SHIFT FOR LUCÍA.
[2022-11-03 06:55] LABS: CARBON DIOXIDE 21 mmol/L (21-32); CHLORIDE 109 mmol/L (98-107); CREATININE 5.8 mg/dL (0.6-1.3); GLUCOSE 134 mg/dL (74-106); MAGNESIUM 2.4 mg/dL (1.8-2.4); PHOSPHORUS 6.6 mg/dL (2.5-4.9); SODIUM SERUM 145 mmol/L (136-145)
[2022-11-03 07:05] LABS: UREA NITROGEN, BLOOD 162 mg/dL (7-18)
--- NOTE | 2022-11-03 07:40 | NUR ---
RN OPENING NOTE PATIENT AWAKE IN BED RESTING, A/O X 1. NO S/S OF PAIN NOTED AT THIS TIME. ON 5L OXYGEN VIA NC , BREATHING EVEN UNLABORED, NO DISTRESS OR SHORTNESS OF BREATH NOTED. IV ACCESS MAURICIO PICC LINE, INTACT, PATENT AND FLUSHING WELL, RUNNING MORPHINE DRIP @ 4ML/HR. FALL AND SAFETY MEASURES IN PLACE, BED ALARM ON, BED IN LOW AND LOCK POSITION, CALL LIGHT AND TABLE WITHIN EASY REACH, SIDE RAILS UP X2. WILL CONTINUE TO MONITOR.
--- NOTE | 2022-11-03 07:50 | NUR ---
RN OPENING NOTE PATIENT AWAKE IN BED RESTING, A/O X 4. NO S/S OF PAIN NOTED AT THIS TIME. ON 4L OXYGEN VIA NC, BREATHING EVEN UNLABORED, NO DISTRESS OR SHORTNESS OF BREATH NOTED. IV ACCESS MAURICIO #20G INTACT, PATENT AND FLUSHING WELL, RUNNING D5 1/2NS @ 75 ML/HR. FALL AND SAFETY MEASURES IN PLACE, BED ALARM ON, BED IN LOW AND LOCK POSITION, CALL LIGHT AND TABLE WITHIN EASY REACH, SIDE RAILS UP X2. WILL CONTINUE TO MONITOR. Addendum: 11/03/22 at 0808 by Francisca Brown RN PATIENT WITH FLYNN CATHETER IN PLACE AND DRAINING WELL, DARK YELLOW URINE. Addendum: 11/03/22 at 1124 by Francisca Brown RN DISCARD THIS NOTE- WRONG PATIENT
[2022-11-03 08:00] VITALS: BP 115/66
--- NOTE | 2022-11-03 13:20 | NUR ---
RN NOTE PATIENT HAVE INCREASE UNLABORED BREATHING, RESPIRATION= 10 AT THE MOMENT, ON 6L OXYGEN VIA NC, DOCTOR WAS INFORMED, MORPHINE DRIP WAS INCREASED FROM 4ML/HR TO 6 ML/HR PER DOCTOR ORDER, MORPHINE DRIP RUNNING AT 6ML/HR NOW, PATIENT SEEMED COMFORTABLE, SLEEPING AWAKEN TO VERBAL STIMULI, WILL CONTINUE TO MONITOR
[2022-11-03 16:00] VITALS: BP 109/58
--- NOTE | 2022-11-03 17:47 | NUR ---
RN NOTE BAG #2 OF MORPHINE IS RUNNING, WAISTED BAG #1 = 180ML, DISCARD IN APPROPRIATE CONTAINER, WITH A RN NURSE, CHARGE NURSE AWARE.
[2022-11-03] MEDS ORDERED: KEY,NONCONTROL,TO KEEP IN PYXI 1 EA MC ONE ×2 (17:49→21:11)
--- NOTE | 2022-11-03 19:00 | NUR ---
MS RN OPENING NOTE PATIENT IS SLEEPING IN BED, EASILY BEING AROUSED. HE IS RESPONDING TO HIS NAME ONLY. A/O X 1. PT IS ON 6 LPM OXYGEN VIA NC, TOLERATED WELL. BREATHING EVENLY, UNLABORED. NO S/S OF DISTRESS OR SOB. PT IS ON CONTINUOUS MORPHINE DRIP AT RATE OF 6 MG/HR. PT DOES NOT SHOW S/S OF HAVING PAIN. IV SITE IS PATENT AND INTACT. PT HAS FLYNN CATHETER IN PLACED, DRAINING CLOUDY ALICIA COLOR URINE IN THE BAG FREELY. PT HAS COLOSTOMY BAG AT HIS RIGHT UPPER ABD; PATENT AND INTACT. SAFETY MEASURES ARE IN PLACED: BED IN LOWEST AND LOCK POSITION; BED ALARM ON; SIDE RAILS UP X 2; CALL LIGHT AND TABLE WITHIN EASY REACH. WILL CONTINUE MONITOR THE PT AND PROVIDE THE CARE PT NEEDS.
--- NOTE | 2022-11-03 19:46 | NUR ---
RN CLOSING NOTE PATIENT AWAKE IN BED RESTING, A/O X 1. NO S/S OF PAIN NOTED AT THIS TIME. ON 5L OXYGEN VIA NC , BREATHING EVEN UNLABORED, NO DISTRESS OR SHORTNESS OF BREATH NOTED. IV ACCESS MAURICIO PICC LINE, INTACT, PATENT AND FLUSHING WELL, RUNNING MORPHINE DRIP @ 6ML/HR. FLYNN CATHETER IN PLACE DRAINING WELL, OUTPUT 100ML, YELLOW URINE. PATIENT WAS TURNED AND REPOSITION PER PROTOCOL. SINK CARE IMPLEMENTED. FALL AND SAFETY MEASURES IN PLACE, BED ALARM ON, BED IN LOW AND LOCK POSITION, CALL LIGHT AND TABLE WITHIN EASY REACH, SIDE RAILS UP X2. ALL NEEDS ATTENDED AND ANTICIPATED. WILL ENDORSE TO NIGHT SHIT NURSE.
[2022-11-03 20:00] VITALS: BP 96/53
--- NOTE | 2022-11-03 20:05 | NUR ---
MS SINA NOTE PT'S BODY TEMP IS 100. PRN ORAL MEDICATION, TYLENOL 650 MG, GIVEN. APPLIED 2 ICE PACKS AT HER AXILLARIES. Addendum: 11/03/22 at 2114 by ANMOL DERAS RN WRONG PT. ERROR
[2022-11-04] MEDS ORDERED: KEY,NONCONTROL,TO KEEP IN PYXI 1 EA MC ONE ×3 (06:28→21:10)
--- NOTE | 2022-11-04 06:42 | NUR ---
MS RN NOTE UNUSED MORPHINE DRIP (NOT MIXED) WAS RETURNED TO THE PHARMACY BY CHARGE NURSE, IGNACIA.
--- NOTE | 2022-11-04 06:43 | NUR ---
MS RN CLOSING NOTE PATIENT IS SLEEPING IN BED, EASILY BEING AROUSED. HE IS RESPONDING TO HIS NAME ONLY. A/O X 1. PT IS ON 6 LPM OXYGEN VIA NC, TOLERATED WELL. BREATHING EVENLY, UNLABORED. NO S/S OF DISTRESS OR SOB. PT IS ON CONTINUOUS MORPHINE DRIP AT RATE OF 6 MG/HR. PT DOES NOT SHOW S/S OF HAVING PAIN. IV SITE IS PATENT AND INTACT. PT HAS FLYNN CATHETER IN PLACED, DRAINING CLOUDY ALICIA COLOR URINE IN THE BAG FREELY. DURING THE SHIFT, URINE OUTPUT IS 100 ML. PT HAS COLOSTOMY BAG AT HIS RIGHT UPPER ABD; PATENT AND INTACT. SAFETY MEASURES ARE IN PLACED: BED IN LOWEST AND LOCK POSITION; BED ALARM ON; SIDE RAILS UP X 2; CALL LIGHT AND TABLE WITHIN EASY REACH. WILL ENDORSE NEXT SHIFT NURSE FOR CONTINUING PT CARE.
[2022-11-04 07:00] VITALS: BP 98/49
[2022-11-04 07:48] LABS: CALCIUM, SERUM 6.8 mg/dL (8.5-10.1); CARBON DIOXIDE 17 mmol/L (21-32); CHLORIDE 108 mmol/L (98-107); CREATININE 6.7 mg/dL (0.6-1.3); GLUCOSE 93 mg/dL (74-106); MAGNESIUM 2.8 mg/dL (1.8-2.4); POTASSIUM 4.9 mmol/L (3.5-5.1); SODIUM SERUM 144 mmol/L (136-145)
--- NOTE | 2022-11-04 07:51 | NUR ---
RN OPENING NOTE PATIENT SLEEPING IN BED RESTING EASILY AROUSED, A/O X 1. NO S/S OF PAIN NOTED AT THIS TIME, PATIENT ON MORPHINE DRIP 6 ML/HR. ON 6L OXYGEN VIA NC , BREATHING EVEN UNLABORED, NO DISTRESS OR SHORTNESS OF BREATH NOTED. IV ACCESS MAURICIO PICC LINE, INTACT, PATENT AND FLUSHING WELL, RUNNING MORPHINE DRIP @ 6ML/HR. PATIENT WITH FLYNN CATHETER IN PLACED AND DARNING WELL, OUTPUT ALICIA COLOR URINE. PATIENT WITH COLOSTOMY BAG RIGHT UPPER ABDOMEN, IN PLACED, NO OUTPUT. FALL AND SAFETY MEASURES IN PLACE, BED ALARM ON, BED IN LOW AND LOCK POSITION, CALL LIGHT AND TABLE WITHIN EASY REACH, SIDE RAILS UP X2. WILL CONTINUE TO MONITOR.
[2022-11-04 08:40] LABS: UREA NITROGEN, BLOOD 188 mg/dL (7-18)
[2022-11-04 08:41] LABS: PHOSPHORUS 9.6 mg/dL (2.5-4.9)
[2022-11-04] MEDS ORDERED: VANCOMYCIN HCL 0.75 GM in IV D5W 250 ML IV SCH (09:00)
[2022-11-04 15:35] VITALS: BP 101/56
--- NOTE | 2022-11-04 18:58 | NUR ---
RN CLOSING NOTE PATIENT AWAKE IN BED RESTING, A/O X 1. NO S/S OF PAIN NOTED AT THIS TIME. ON 6L OXYGEN VIA NC , BREATHING EVEN UNLABORED, NO DISTRESS OR SHORTNESS OF BREATH NOTED. IV ACCESS MAURICIO PICC LINE, INTACT, PATENT AND FLUSHING WELL, RUNNING MORPHINE DRIP @ 6ML/HR. FLYNN CATHETER IN PLACE DRAINING WELL, OUTPUT 50ML, ALICIA COLORED URINE. PATIENT WAS TURNED AND REPOSITION PER PROTOCOL. SKIN CARE AND ORAL CARE IMPLEMENTED. FALL AND SAFETY MEASURES IN PLACE, BED ALARM ON, BED IN LOW AND LOCK POSITION, CALL LIGHT AND TABLE WITHIN EASY REACH, SIDE RAILS UP X2. ALL NEEDS ATTENDED AND ANTICIPATED. WILL ENDORSE TO COMPANY PILOT NURSE.
--- NOTE | 2022-11-04 19:40 | NUR ---
MS RN OPENING NOTE RECEIVED PATIENT IN BED, WITH EYES CLOSED BUT EASY TO AROUSE AND RESPONDS TO VERBAL AND TACTILE STIMULI. AFEBRILE AND NOT IN ANY FORM OF ACUTE DISTRESS. ON O2 INHALATION VIA NASAL CANNULA AT 6LPM. WITH RIGHT FEMORAL CATHETER, DRESSING INTACT. WITH IV ACCESS ON MAURICIO PICC LINE. CONTINUOUS ON MORPHINE DRIP AT 6ML/HR. WITH INTACT COLOSTOMY BAG. WITH FLYNN CATHETER, DRAINING WITH ALICIA COLORED URINE OUTPUT, SMALL AMOUNT, NO HEMATURIA OR SEDIMENTS NOTED. SAFETY MEASURES IN PLACE. KEPT BED IN LOCKED AND IN LOW POSITION. SIDE RAILS UP X2. CALL LIGHT WITHIN EASY REACH.
[2022-11-04 20:00] VITALS: BP 91/48
--- NOTE | 2022-11-05 06:30 | NUR ---
MS RN CLOSING NOTE PATIENT IN BED, WITH EYES CLOSED BUT EASY TO AROUSE AND RESPONDS TO VERBAL AND TACTILE STIMULI. AFEBRILE AND NOT IN ANY FORM OF ACUTE DISTRESS. ON O2 INHALATION VIA NASAL CANNULA AT 6LPM. WITH RIGHT FEMORAL CATHETER, DRESSING INTACT. WITH IV ACCESS ON MAURICIO PICC LINE. CONTINUOUS ON MORPHINE DRIP AT 6ML/HR. COMFORT MEASURES OBSERVED. WITH INTACT COLOSTOMY BAG. WITH FLYNN CATHETER, DRAINING WITH SCANTY AMOUNT OF ALICIA COLORED URINE, NO HEMATURIA OR SEDIMENTS NOTED. DUE MEDS GIVEN. TURNED AND REPOSITIONED NEEDED FOR COMFORT AND PROPER CIRCULATION. SAFETY MEASURES IN PLACE. KEPT BED IN LOCKED AND IN LOW POSITION. SIDE RAILS UP X2. CALL LIGHT WITHIN EASY REACH. ALL NURSING NEEDS ATTENDED. ENDORSED TO INCOMING SHIFT FOR CONTINUITY OF CARE.
[2022-11-05 07:00] VITALS: BP 96/72
--- NOTE | 2022-11-05 07:30 | NUR ---
RN OPENING NOTE PATIENT SLEEPING IN BED RESTING EASILY AROUSED, A/O X 1. NO S/S OF PAIN NOTED AT THIS TIME, PATIENT ON MORPHINE DRIP 6 ML/HR. ON 6L OXYGEN VIA NC , BREATHING EVEN UNLABORED, NO DISTRESS OR SHORTNESS OF BREATH NOTED. IV ACCESS MAURICIO PICC LINE, INTACT, PATENT AND FLUSHING WELL, RUNNING MORPHINE DRIP @ 6ML/HR. PATIENT WITH FLYNN CATHETER IN PLACE. PATIENT WITH COLOSTOMY BAG RIGHT UPPER ABDOMEN, IN PLACE, NO OUTPUT. FALL AND SAFETY MEASURES IN PLACE, BED ALARM ON, BED IN LOW AND LOCK POSITION, CALL LIGHT AND TABLE WITHIN EASY REACH, SIDE RAILS UP X2. WILL CONTINUE TO MONITOR.
[2022-11-05 08:03] LABS: CARBON DIOXIDE 19 mmol/L (21-32); CHLORIDE 108 mmol/L (98-107); GLUCOSE 76 mg/dL (74-106); POTASSIUM 4.8 mmol/L (3.5-5.1); SODIUM SERUM 147 mmol/L (136-145)
[2022-11-05 08:04] LABS: CALCIUM, SERUM 6.2 mg/dL (8.5-10.1); MAGNESIUM 2.6 mg/dL (1.8-2.4)
[2022-11-05 08:05] LABS: CREATININE 8.3 mg/dL (0.6-1.3); UREA NITROGEN, BLOOD 215 mg/dL (7-18)
[2022-11-05 08:06] LABS: PHOSPHORUS 11.7 mg/dL (2.5-4.9)
[2022-11-05] MEDS ORDERED: KEY,NONCONTROL,TO KEEP IN PYXI 1 EA MC ONE ×2 (13:06→20:57)
[2022-11-05 15:27] VITALS: BP 89/44
[2022-11-05] MEDS: SCOPOLAMINE PATCH 1 MG/72HR TD SCH (18:25)
--- NOTE | 2022-11-05 19:06 | NUR ---
RN CLOSING NOTE PATIENT AWAKE IN BED RESTING, A/O X 1. NO S/S OF PAIN NOTED AT THIS TIME. ON 6L OXYGEN VIA NC , BREATHING EVEN UNLABORED, NO DISTRESS OR SHORTNESS OF BREATH NOTED. IV ACCESS MAURICIO PICC LINE, INTACT, PATENT AND FLUSHING WELL, RUNNING BAG#5 MORPHINE DRIP @ 6ML/HR. FLYNN CATHETER IN PLACE DRAINING WELL, OUTPUT 20ML, ALICIA COLORED URINE. PATIENT WAS TURNED AND REPOSITION PER PROTOCOL. SKIN CARE AND ORAL CARE IMPLEMENTED. FALL AND SAFETY MEASURES IN PLACE, BED ALARM ON, BED IN LOW AND LOCK POSITION, CALL LIGHT AND TABLE WITHIN EASY REACH, SIDE RAILS UP X2. ALL NEEDS ATTENDED AND ANTICIPATED. WILL ENDORSE TO GRADUATE TEACHING ASSOCIATE NURSE.
--- NOTE | 2022-11-05 19:24 | NUR ---
MS RN OPENING NOTE RECEIVED PATIENT IN BED, WITH EYES CLOSED AND ONLY REACTS TO TACTILE STIMULI. AFEBRILE AND NOT IN ANY FORM OF ACUTE DISTRESS. ON O2 INHALATION VIA NASAL CANNULA AT 6LPM. WITH RIGHT FEMORAL CATHETER, DRESSING STILL INTACT. WITH IV ACCESS ON MAURICIO PICC LINE. CONTINUOUS ON MORPHINE DRIP AT 6ML/HR. WITH INTACT COLOSTOMY BAG, NO OUTPUT AT THIS TIME. WITH FLYNN CATHETER, DRAINING WITH SCANTY AMOUNT OF ALICIA COLORED URINE. SAFETY MEASURES IN PLACE. KEPT BED IN LOCKED AND IN LOW POSITION. SIDE RAILS UP X2. CALL LIGHT WITHIN EASY REACH.
[2022-11-05 20:00] VITALS: BP 68/33
--- NOTE | 2022-11-06 06:30 | NUR ---
MS RN CLOSING NOTE PATIENT IN BED, WITH EYES CLOSED, RESPONDS TO TACTILE STIMULI. AFEBRILE AND NOT IN ANY FORM OF ACUTE DISTRESS. ON O2 INHALATION VIA NASAL CANNULA AT 6LPM. WITH RIGHT FEMORAL CATHETER, DRESSING INTACT. WITH IV ACCESS ON MAURICIO PICC LINE. CONTINUOUS ON MORPHINE DRIP AT 6ML/HR. WITH INTACT COLOSTOMY BAG, NO OUTPUT DURING THE SHIFT. WITH FLYNN CATHETER, DRAINING WITH SCANTY AMOUNT OF ALICIA COLORED URINE, NO HEMATURIA OR SEDIMENTS NOTED. COMFORT MEASURES OBSERVED. TURNED AND REPOSITIONED NEEDED FOR COMFORT AND PROPER CIRCULATION. SAFETY MEASURES IN PLACE. KEPT BED IN LOCKED AND IN LOW POSITION. SIDE RAILS UP X2. CALL LIGHT WITHIN EASY REACH. ALL NURSING NEEDS ATTENDED. ENDORSED TO INCOMING SHIFT FOR CONTINUITY OF CARE.
[2022-11-06 07:00] VITALS: BP 60/36
--- NOTE | 2022-11-06 07:30 | NUR ---
MS RN NOTE PATIENT IN BED, WITH EYES CLOSED, RESPONDS TO TACTILE STIMULI. NO ACUTE DISTRESS NOTED. APPEARS COMFORTABLE, NO FACIAL GRIMACING NOTED. ON O2 INHALATION VIA NASAL CANNULA AT 6LPM SATURATING AT 94-95% . WITH RIGHT FEMORAL CATHETER, DRESSING CLEAN , DRY AND INTACT. WITH IV ACCESS ON RIGHT UPPER ARM PICC LINE PATENT AND INTACT, RUNNING CONTINUOUS ON MORPHINE DRIP AT 6ML/HR. COLOSTOMY BAG INTACT. FLYNN CATHETER, DRAINING WITH SCANTY AMOUNT OF ALICIA COLORED URINE, NO HEMATURIA OR SEDIMENTS NOTED. SAFETY MEASURES IN PLACE, BED LOCKED AND IN LOW POSITION. SIDE RAILS UP X2. CALL LIGHT WITHIN EASY REACH. WILL CONTINUE TO MONITOR ACCORDINGLY.
[2022-11-06] MEDS ORDERED: KEY,NONCONTROL,TO KEEP IN PYXI 1 EA MC ONE (13:49)
[2022-11-06 15:19] VITALS: BP 51/27
--- NOTE | 2022-11-06 18:50 | NUR ---
MS RN CLOSING NOTES PATIENT IN BED, WITH EYES CLOSED, RESPONDS TO TACTILE STIMULI. NO ACUTE DISTRESS NOTED. APPEARS COMFORTABLE, NO FACIAL GRIMACING NOTED. ON O2 INHALATION VIA NASAL CANNULA AT 6LPM SATURATING AT 94-95% . WITH RIGHT FEMORAL CATHETER, DRESSING CLEAN , DRY AND INTACT. WITH IV ACCESS ON RIGHT UPPER ARM PICC LINE PATENT AND INTACT, RUNNING CONTINUOUS ON MORPHINE DRIP AT 7ML/HR. COLOSTOMY BAG INTACT NO OUTPUT. FLYNN CATHETER, DRAINING WITH SCANTY AMOUNT OF ALICIA COLORED URINE, NO HEMATURIA OR SEDIMENTS NOTED. COMFORT MEASURES OBSERVED. TURNED AND REPOSITIONED NEEDED FOR COMFORT AND PROPER CIRCULATION. SAFETY MEASURES IN PLACE. SAFETY MEASURES IN PLACE, BED LOCKED AND IN LOW POSITION. SIDE RAILS UP X2. CALL LIGHT WITHIN EASY REACH. WILL ENDORSE TO NIGHT NURSE FOR CONTINUITY OF CARE.
--- NOTE | 2022-11-06 19:30 | NUR ---
MS SINA OPENING NOTES RECEIVED PT IN BED, WITH EYES CLOSED, RESPONDS TO TACTILE STIMULI. NO ACUTE DISTRESS NOTED. APPEARS COMFORTABLE, NO FACIAL GRIMACING NOTED. ON O2 INHALATION VIA NASAL CANNULA AT 5L. WITH RIGHT FEMORAL CATHETER, DRESSING CLEAN , DRY AND INTACT. WITH IV ACCESS ON RIGHT UPPER ARM PICC LINE PATENT AND INTACT, RUNNING CONTINUOUS ON MORPHINE DRIP AT 8ML/HR. COLOSTOMY BAG INTACT NO OUTPUT. FLYNN CATHETER, NO URINE OUTPUT AT THIS TIME. COMFORT MEASURES MAINTAINED. SAFETY MEASURES IN PLACE: BED LOCKED AND IN LOW POSITION, SIDE RAILS UP X2, CALL LIGHT WITHIN EASY REACH, WILL CONTINUE TO MONITOR AND ASSIST. Addendum: 11/06/22 at 2005 by HAKEEM ROSE RN CORRECTION: MORPHINE DRIP AT 7ML/HR
[2022-11-06 20:00] VITALS: BP 52/32
--- NOTE | 2022-11-06 20:13 | NUR ---
RN DINO VARGHESE FROM PHARMACY CALLED ASKING IF THEY HAVE TO SEND ANOTHER MORPHINE BAG BASED ON PATIENT'S STATUS. PER NURSING JUDGMENT AND CONSULTATION WITH CHARGE NURSE, PHARMACY WAS INFORMED NOT TO SEND ANOTHER MORPHINE BAG FOR TONIGHT.
[2022-11-07] MEDS ORDERED: KEY,NONCONTROL,TO KEEP IN PYXI 1 EA MC ONE (01:34)
--- NOTE | 2022-11-07 02:24 | NUR ---
RN NOTE PT AT 2330, NOTED WITH NO PULSE OR BREATHING. CHARGE NURSE AND NURSING RADIATOR CORE TESTER INFORMED. FAMILY OF PT: JUAN NICOLE [phone] / SHEKHARNena ELMORE [phone], CALLED TWICE AND LEFT A MESSAGE, NO RESPONSE AT THIS TIME. [facility] NOTIFIED OF PT'S , CASE #[id number]. THEY DEEMED PT NOT A CANDIDATE BASED ON REPORT. DR DUFFY ALSO NOTIFIED AND CONFIRMED RECEIPT OF MESSAGE. POST-MORTEM CARE PROVIDED FOR PT. APPROPRIATE FORMS DOCUMENTED. NO BELONGINGS NOTED. SECURITY TOOK BODY TO [place] AT 0200 AFTER NO RESPONSE FROM FAMILY REGARDING CHOICE OF MORTUARY. TUBE DISPATCHER PUMP REMOVED WITH CHARGE NURSE BETH, TOTAL REMAINING VOLUME NOTED AT 33.5 ML. WASTED MORPHINE AND WITNESSED BY CHARGE NURSE.
== END 2022-11-06 23:30 | DRG 177 ==
LOC: ER 05:18 → ICU 08:48 → MED 11-02 19:41
PROVIDERS: ADMIT Nurse Practitioner Acute Care; ATTEND Internal Medicine
PROC: 5A1D70Z Performance of Urinary Filtration, Intermittent, Less than 6 Hours Per Day (ICD-10-PCS; 2022-10-26)
PROC: 06HM33Z Insertion of Infusion Device into Right Femoral Vein, Percutaneous Approach (ICD-10-PCS; principal; 2022-10-27)
PROC: B54BZZA Ultrasonography of Right Lower Extremity Veins, Guidance (ICD-10-PCS; 2022-10-27)
DX: J69.0 Pneumonitis due to inhalation of food and vomit (principal); E43 Unspecified severe protein-calorie malnutrition; K76.7 Hepatorenal syndrome; J96.02 Acute respiratory failure with hypercapnia; J96.01 Acute respiratory failure with hypoxia; N18.6 End stage renal disease; N17.0 Acute kidney failure with tubular necrosis; I13.2 Hypertensive heart and chronic kidney disease with heart failure and with stage 5 chronic kidney disease, or end stage renal disease; K92.2 Gastrointestinal hemorrhage, unspecified; C22.9 Malignant neoplasm of liver, not specified as primary or secondary; G93.49 Other encephalopathy; E87.1 Hypo-osmolality and hyponatremia; E87.20 Acidosis, unspecified; K80.51 Calculus of bile duct without cholangitis or cholecystitis with obstruction; I42.9 Cardiomyopathy, unspecified; K72.10 Chronic hepatic failure without coma; Z51.5 Encounter for palliative care; Z66 Do not resuscitate; Z20.822 Contact with and (suspected) exposure to COVID-19; Z85.05 Personal history of malignant neoplasm of liver; Z99.2 Dependence on renal dialysis; Z86.73 Personal history of transient ischemic attack (TIA), and cerebral infarction without residual deficits; Z98.890 Other specified postprocedural states; I25.10 Atherosclerotic heart disease of native coronary artery without angina pectoris; I50.9 Heart failure, unspecified; E78.5 Hyperlipidemia, unspecified; Z79.899 Other long term (current) drug therapy; Z79.01 Long term (current) use of anticoagulants; D64.9 Anemia, unspecified; E03.9 Hypothyroidism, unspecified; E88.09 Other disorders of plasma-protein metabolism, not elsewhere classified; R74.01 Elevation of levels of liver transaminase levels; E87.6 Hypokalemia; R57.1 Hypovolemic shock; E83.39 Other disorders of phosphorus metabolism; F03.90 Unspecified dementia, unspecified severity, without behavioral disturbance, psychotic disturbance, mood disturbance, and anxiety; I48.0 Paroxysmal atrial fibrillation; Y95 Nosocomial condition; Z85.09 Personal history of malignant neoplasm of other digestive organs; R60.9 Edema, unspecified
CPT/HCPCS: 36415; 36600; 71045-TC; 71250-TC; 76770-TC; 80048-TC; 80053-TC; 80076-TC; 80202-TC; 82533; 82803-TC; 82962-TC; 83690-TC; 83735-TC; 84100-TC; 84132-TC; 84439-TC; 84443-TC; 84478-TC; 84484-TC; 85025-TC; 86706; 86850-TC; 87040-TC; 87081-TC; 87340; 90935-TC; 93971-TC; 94799-TC; A4223; A9563; C9113; C9803; G0378; J0282; J0692; J1160; J1170; J1644; J1720; J1815; J1940; J2274; J2354; J2370; J2405; J2920; J3370; J3475; J3480; J3490; J7030; J7050; J7060